=== PATIENT | male | born 1980 | race Caucasian/White ===

== ENCOUNTER 2023-06-12 17:19 | Inpatient (IN) | payer MEDICAID, SELFPAY ==
[2023-06-12] VITALS (36 sets, daily range): BP systolic 79–128; BP diastolic 14–91; PULSE 61–80; RESP 14–20; TEMP 36.1–36.9; O2SAT 88–100; BMI 32.5
--- NOTE | 2023-06-12 17:23 | ECG_ITS ---
APPROVED REPORT Exam: Resting ECG HR:75 bpm ECG Measurements Heart Rate 75 AXES IN 151 P 78 QRSd 124 QRS -62 QT 388 T 66 QTc 417 Conclusion SINUS RHYTHM LEFT ANTERIOR FASCICULAR BLOCK [QRS AXIS <= -45, QR IN I, RS IN II] MODERATE VOLTAGE CRITERIA FOR LVH, CONSIDER NORMAL VARIANT [MEETS CRITERIA IN ONE OF: R(aVL), S(V1), R(V5), R(V5/V6)+S(V1)] PROBABLE LATERAL MYOCARDIAL INFARCTION , OF INDETERMINATE AGE [35 ms Q WAVE IN I/aVL/V5/V6] ABNORMAL ECG UNCONFIRMED REPORT Electronically signed by : Victor Hugo Cervantes MD 06/13/2023 14:36:39
[2023-06-12 17:45] LABS: Basophils # 0.1 K/mm3 (0-0.2); Basophils % 0.9 % (0.1-2.0); Eosinophils # 0.1 K/mm3 (0.0-0.4); Eosinophils % 1.1 % (0.1-12.0); Hematocrit 45.1 % (42.0-52.0); Hemoglobin 15.4 g/dL (14.1-18.0); Lymphocytes # 2.8 K/mm3 (0.7-4.5); Lymphocytes % 29.2 % (10-50); Mean Corpuscular Hemoglobin 29.8 pg (27.0-31.2); Mean Corpuscular Volume 87.4 fl (80-94); Mean Platelet Volume 7.8 fl (7.4-10.4); Monocytes # 0.6 K/mm3 (0.1-1.0); Neutrophils # 6.1 K/mm3 (1.8-7.8); Neutrophils % 62.7 % (37.0-80.0); Platelet Count 301 K/mm3 (142-424); Red Blood Count 5.16 M/mm3 (4.60-6.20); Red Cell Distribution Width 14.8 % (11.5-17.5); White Blood Count 9.7 K/mm3 (4.8-10.8)
[2023-06-12 17:52] LABS: Chloride 98 mmol/L (98-107); Potassium 3.9 mmoL/L (3.5-5.1); Sodium 143 mmol/L (136-145)
[2023-06-12 17:55] LABS: Alanine Aminotransferase 24 U/L (12-78); Albumin Level 4.3 g/dl (3.5-5.0); Albumin/Globulin Ratio 1.3 (1.1-1.8); Alkaline Phosphatase 55 U/L (38-126); Anion Gap 8.9 mEq/L (5-15); Aspartate Amino Transferase 35 U/L (17-59); Bilirubin,Total 0.5 mg/dl (0.2-1.3); Blood Urea Nitrogen 19 mg/dl (9-20); Calcium 9.5 mg/dl (8.4-10.2); Carbon Dioxide 40 mmol/L (22.0-30.0); Creatinine Clearance Estimated 120 mL/min (50-200); Estimated Glomerular Filt Rate 65 ml/min (>60); GFR (African American) 79 ML/MIN (>60); Globulin 3.3 g/dL (1.3-3.2); Glucose 201 mg/dl (74-100); Total Protein,Serum 7.6 g/dl (6.3-8.2)
[2023-06-12 17:56] LABS: Magnesium 2.3 mg/dl (1.6-2.3); Phosphorous 5.3 mg/dl (2.5-4.5)
[2023-06-12] MEDS: LACTATED RINGERS 1000ML 1,000 ML 999 ML IV (17:57)
[2023-06-12 17:58] LABS: Acetaminophen < 10 ug/ml (10-30); Ethyl Alcohol < 10 mg/dl (0-10); Salicylate < 1.0 mg/dL (2.0-20.0)
[2023-06-12] MEDS: ONDANSETRON 4MG/2ML VIAL 4 MG IV (17:58)
[2023-06-12 18:00] LABS: VBG Base Excess 9.4 mmol/L (-2.4-2.3); VBG HCO3 34.9 mmol/L (23-30); VBG Oxygen Saturation 63.7 % (50-70); VBG PCO2 63.9 mmol/L (35-51); VBG PH 7.36 mmol/L (7.31-7.41); VBG PO2 32.3 mmol/L (28-40); VBG Total CO2 36.8 mmol/L (23-27)
--- NOTE | 2023-06-12 18:03 | HMH.EDGENADL ---
Discharge Plan Disposition Patient Disposition: Admitted Clinical Impressions Clinical Impression: Acute hypoxemic respiratory failure Intentional drug overdose Qualifiers: Encounter type: initial encounter Qualified Code(s): T50.902A - Poisoning by unspecified drugs, medicaments and biological substances, intentional self-harm, initial encounter Discharge ED Provider: Carina Sharp General Adult HPI General Chief complaint: Overdose Stated complaint: OD Time Seen by Provider: 06/12/23 17:22 Mode of Arrival: Wheelchair Source of Information: Patient Limitations: No Limitations Description of Symptoms (Recalled from ER Triage Doc. by RN): Patient states he has alot going on in his life and attempted to take his life by taking about 90 gabapentin 18 30mg morphine and a whole bottle of lisinopril. Patient states he has history of SI attempts. Patient was vomiting and sweating on arrival to ED. History of Present Illness HPI narrative: This patient is a 43-year-old male with a history of bipolar disorder, diabetes, hypertension, chronic pain, and prior suicide attempt presenting to the emergency department for evaluation after an intentional overdose. Patient reports that sometime between 11 AM and 2 PM today, he took 90 300mg tablets of gabapentin, 18 30mg tablets of morphine ER, 50 20mg/12.5mg lisinpril/hctz tablets in an attempt to kill himself. A woman that he is currently staying with who describes her self as an acquaintance arrived home and found him after this overdose, and she forced him to drink baking soda. After this, he began profusely vomiting. He arrives actively vomiting at this time. He received narcan from his friend just [employer]. Related Data Allergies Allergy/AdvReac Type Severity Reaction Status Date / Time No Known Allergies Allergy Verified 06/12/23 17:54 [facility] Disclaimer: The information contained in this section may have been updated after the patient was seen, as this information can be updated by other users. Social History Smoking Status: Current every day smoker alcohol intake: never current occupational status: employed Travel in the last 8 weeks: None ROS Obtained: Yes All systems reviewed & no additional complaints except as documented Physical Exam General General appearance: alert Comment: Actively vomiting, tired appearing but conversational Head Head exam: atraumatic and normocephalic Eye Eye exam: Present normal appearance, PERRL and EOMI ENT ENT exam: Present normal exam, normal oropharynx, mucous membranes moist and normal external ear exam Neck Neck exam: Present normal inspection, full ROM and trachea midline; Absent tenderness Chest Chest inspection: Present normal inspection and symmetric chest wall rise; Absent tenderness Respiratory Respiratory exam: Present normal lung sounds bilaterally; Absent respiratory distress, wheezes, stridor or accessory muscle use Cardiovascular Cardiovascular exam: Present regular rate and normal rhythm Abdominal Exam Abdominal exam: Present soft; Absent distention, tenderness or guarding Extremities Exam Extremities exam: Present normal inspection, full ROM and normal capillary refill; Absent tenderness or edema Back Exam Back exam: Present normal inspection and full ROM; Absent tenderness Neurological Exam Neurological exam: Present alert, oriented X3, CN II-XII intact and normal gait; Absent motor sensory deficit Psychiatric Psychiatric exam: Present normal affect and normal mood Skin Skin exam: Present warm and dry Medical Decision Making Medical Records Medical records reviewed: Yes I reviewed the patient's medical records. Umesh Inquiry Pt receiving controlled substance: No Vital Signs: 06/12/23 17:20 06/12/23 18:17 06/12/23 18:24 Temperature 98.5 F Temperature Source Oral Pulse Rate 61 62 Pulse Rate [Right] 80 Respiratory Rate 20 14 19 Blood Pressure 111/70 109/76 L Blood Pressure [Right Arm] 128/91 H Blood Pressure Mean [Right Arm] 103 02 Sat by Pulse Oximetry 99 100 97 Oxygen Delivery Method Room Air Nasal Cannula Room Air Oxygen Flow Rate (LPM) 2 2 06/12/23 18:30 06/12/23 19:26 Temperature Temperature Source Pulse Rate 64 Pulse Rate [Right] Respiratory Rate 19 18 Blood Pressure 109/76 L Blood Pressure [Right Arm] Blood Pressure Mean [Right Arm] 02 Sat by Pulse Oximetry 88 L 98 Oxygen Delivery Method Nasal Cannula Oxygen Flow Rate (LPM) 2 Lab Data Lab results reviewed: Yes I reviewed the patient's lab results. Lab Results 06/12/23 17:23: WBC 9.7, RBC 5.16, Hgb 15.4, Hct 45.1, MCV 87.4, MCH 29.8, MCHC 34.0, RDW 14.8, Plt Count 301, MPV 7.8, Neut % (Auto) 62.7, Lymph % (Auto) 29.2, [place] % (Auto) 6.0, Eos % (Auto) 1.1, Baso % (Auto) 0.9, Neut # (Auto) 6.1, Lymph # (Auto) 2.8, [place] # (Auto) 0.6, Eos # (Auto) 0.1, Baso # (Auto) 0.1, Sodium 143, Potassium 3.9, Chloride 98, Carbon Dioxide 40 H, Anion Gap 8.9, BUN 19, Creatinine 1.20, Estimated Creat Clear 120, Estimated GFR 65, Est GFR ( Amer) 79, Glucose 201 H, Calcium 9.5, Phosphorus 5.3 H, Magnesium 2.3, Total Bilirubin 0.5, AST 35, ALT 24, Alkaline Phosphatase 55, Total Protein 7.6, Albumin 4.3, Globulin 3.3 H, Albumin/Globulin Ratio 1.3, Salicylates < 1.0 L, Acetaminophen < 10 L, Plasma/Serum Alcohol < 10 06/12/23 17:24: VBG pH 7.36, VBG pCO2 63.9 H, VBG pO2 32.3, VBG HCO3 34.9 H, VBG Total CO2 36.8 H, VBG O2 Saturation 63.7, VBG Base Excess 9.4 H 06/12/23 19:03: Urine Color Yellow, Urine Appearance Clear, Urine pH 7.5, Ur Specific [place] 1.015, Urine Protein Negative, Urine Glucose (UA) Negative, Urine Ketones Negative, Urine Blood Negative, Urine Nitrate Negative, Urine Bilirubin Negative, Urine Urobilinogen 0.2, Ur Leukocyte Esterase Negative, Urine RBC None, Urine WBC None, Ur Squamous Epith Cells None, Urine Bacteria None, Urine Opiates Screen Positive H, Urine Methadone Screen Negative, Ur Barbituates Screen Negative, Ur Phencyclidine Scrn Negative, Ur Amphetamines Screen Positive H, U Benzodiazepines Scrn Positive H, Urine Cocaine Screen Negative, U Marijuana (THC) Screen Positive H 06/12/23 17:23 06/12/23 17:23 Orders (Tests/Meds): ED MEDICATIONS Generic Name Dose Route Start Last Admin Trade Name Freq PRN Reason Stop Dose Admin Enoxaparin Sodium 40 mg 06/12/23 19:45 Enoxaparin 40mg/0.4ml Syringe SQ 07/12/23 19:44 DAILY SACHIN Propofol 100 mls @ 6.532 mls/hr 06/12/23 19:10 06/12/23 19:26 Diprivan 10mg/Ml 100ml Bottle IV 07/12/23 19:09 10 mcg/kg/min .[id number] SACHIN 6.53 mls/hr Administration Protocol 10 MCG/KG/MIN Fentanyl Citrate 1,000 mcg/ 100 mls @ 1 mls/hr 06/12/23 19:10 06/12/23 19:23 Sodium Chloride IV 07/12/23 19:09 10 mcg/hr .Q24H SACHIN 1 mls/hr Administration Protocol 10 MCG/HR Morphine Sulfate 2 mg 06/12/23 19:34 Morphine 2mg/Ml Syringe IV 07/12/23 19:33 Q2HP PRN Severe Pain (7-10) Pantoprazole Sodium 40 mg 06/12/23 21:00 Pantoprazole 40mg Vial IV 07/12/23 20:59 HS SACHIN Sodium Chloride 3 ml 06/12/23 19:22 Sodium Chloride 3% 15ml Neb IH 07/12/23 19:21 ONCE PRN INDUCE SPUTUM COLLECTION Discontinued Medications Generic Name Dose Route Start Last Admin Trade Name Freq PRN Reason Stop Dose Admin Etomidate 40 mg 06/12/23 18:51 06/12/23 18:51 Etomidate 40mg/20ml Vial IV 06/12/23 18:52 40 mg ONCE ONE Administration Lactated Ringer's 1,000 mls @ 999 mls/hr 06/12/23 17:26 06/12/23 17:57 Lactated Ringer's 1000 Ml Bag IV 06/12/23 18:26 999 mls/hr .Q1H1M ONE Administration Naloxone HCl 4 mg/ Dextrose 254 mls @ 25.4 mls/hr 06/12/23 18:45 06/12/23 19:30 IV 07/12/23 18:44 Not Given .Q10H SACHIN Protocol 0.4 MG/HR Naloxone HCl 4 mg 06/12/23 18:27 06/12/23 18:30 Naloxone 2mg/2ml Syringe IV 06/12/23 18:28 4 mg ONCE ONE Administration Naloxone HCl 8 mg 06/12/23 18:36 06/12/23 18:44 Naloxone 2mg/2ml Syringe IV 06/12/23 18:37 8 mg ONCE ONE Administration Ondansetron HCl 4 mg 06/12/23 17:28 06/12/23 17:58 Ondansetron 4mg/2ml Vial IV 06/12/23 17:29 4 mg ONCE ONE Administration Succinylcholine Chloride 100 mg 06/12/23 18:51 06/12/23 18:51 Succinylcholine 20mg/Ml 10 Ml Mdv IV 06/12/23 18:52 100 mg ONCE ONE Administration ORDERS Category Date Time Status Pulmonology Consult [Consult to Pulmonology] [CONS] Cons 06/12/23 19:36 Active Stat XR chest portable Stat Exams 06/12/23 18:56 Completed Acetaminophen Stat Lab 06/12/23 17:23 Completed Complete Blood Count Auto Diff AMLAB Lab 06/13/23 06:00 Ordered Complete Blood Count Auto Diff Stat Lab 06/12/23 17:23 Completed Comprehensive Metabolic Panel AMLAB Lab 06/13/23 06:00 Ordered Comprehensive Metabolic Panel Stat Lab 06/12/23 17:23 Completed Drug Screen,Urine Stat Lab 06/12/23 19:03 Completed Ethyl Alcohol Stat Lab 06/12/23 17:23 Completed Magnesium AMLAB Lab 06/13/23 06:00 Ordered Magnesium Stat Lab 06/12/23 17:23 Completed Phosphorous Stat Lab 06/12/23 17:23 Completed Salicylate Stat Lab 06/12/23 17:23 Completed Urinalysis and Microscopic Stat Lab 06/12/23 19:03 Completed Sputum Culture & Gram Stain Stat Micro 06/12/23 19:00 Ordered ABG [Arterial Blood Gas] Stat RT 06/12/23 20:00 Completed Venous Blood Gas Stat RT 06/12/23 17:24 Completed ECG Data Tracing #1: I reviewed this ECG and interpreted as documented below: Normal sinus rhythm with a ventricular rate of 75 bpm. Left anterior fascicular block noted. No prior EKG available for comparison. No acute ST changes concerning for ischemia. No prolonged QT. ECG initial impression date: 06/12/23 ECG initial impression time: 17:28 Medical Decision Narrative: In summary, this patient is a 43-year-old male presenting to the Emergency Department for evaluation after intentional overdose on gabapentin, lisinopril/HCTZ, and morphine. Differential diagnoses considered include but are not limited to suicide attempt, intentional overdose, tylenol overdose, other substance abuse, shock. Ruling out the most morbid conditions drove assessment. On exam, the patient is vomiting but is alert and conversational. Vitals are normal on cardiac telemetry. Workup included CBC, CMP, magnesium, phosphorus, VBG, acetaminophen level, salicylate level, ethanol, urinalysis, urine drug screen, and EKG. Full resuscitation was initiated with a bolus of IV fluids and he was given IV Zofran once EKG was obtained and did not demonstrate prolonged QT. I called and had an interactive discussion with poison control on arrival who recommended 6-hour observation. They noted concerns for potential hemodynamic instability given his ingestion of lisinopril as well as somnolence given the morphine. They recommended Narcan as needed. They stated otherwise it should be supportive management and fluid resuscitation. They also recommended checking electrolytes given the baking soda ingestion. The baking soda ingestion is their largest concern. Patient remains on cardiac telemetry at this time. Involuntary hold process initiated. Labs demonstrated negative acetaminophen, negative salicylate, negative ethanol level, but urine drug screen is positive for benzodiazepines, THC, opiates, and amphetamines. Workup was otherwise relatively unremarkable. Patient became more and more somnolent while in the emergency department. He was given 4 mg of IV Narcan with minimal improvement initially, however he then became more somnolent and having frequent desaturations. He was given 8 mg of Narcan with no improvement. He continued to have repeated desaturations into the 70s. Given this, decision was made to intubate him for airway protection until he did have less distress and is cleared for psychiatric evaluation. He was intubated with etomidate and succinylcholine with no complications. An 8-0 ETT was placed at 24 at the lip. Placement was confirmed with breath sounds, color change, and chest x-ray. It was 6.5 cm above the carmen, so was advanced 2 cm. He maintained on minimal vent settings. He is hemodynamically stable. Given this, I called and had an interactive discussion with Dr. Saxena and Lee the hospitalists who advised that they would admit the patient for further evaluation and management. He was admitted in stable condition. Procedures Intubation Mallampati Score:: Class II Time out performed: Yes sedative: Etomidate Mg Given: 40 paralytic: Succinylcholine Mg Given: 50 Laryngoscope: Homa ET Tube Size: 8 ET Tube Uncuffed: No Tube Secured Depth (cm): 24 Tube Secured Location: lips Tube Placement Confirmation: visualized tube passing through cords, equal breath sounds bilaterally, no breath sounds over epigastrium and confirmation by capnometry Patient Tolerated Procedure: well and no complications Intubation Complications: none Critical Care Critical Care Time Critical Care Time: Yes Attestation: On 06/12/23, the high probability of a clinically significant, sudden or life threatening deterioration of the following system(s) (neurologic, cardiovascular, respiratory) required my full and direct attention, intervention and personal management. The time I documented below is in addition to time spent performing reported procedures but includes the following listed in this critical care notation. Total Time Total Critical Care Time: 60
--- NOTE | 2023-06-12 18:25 | PC.NURSE ---
pt placed on 2 liters of oxygen by Martín per request due to pt sat dropping in the 70's when sleeping
[2023-06-12] MEDS: NALOXONE 2MG/2ML SYRINGE 4 MG IV (18:30)
--- NOTE | 2023-06-12 18:42 | PC.NURSE ---
ADJUSTED PT OXYGEN TO 4 LITERS
[2023-06-12] MEDS: NALOXONE 2MG/2ML SYRINGE 8 MG IV (18:44)
--- NOTE | 2023-06-12 18:50 | PC.NURSE ---
Spoke with judge krueger and advised that he had been emailed forms
[2023-06-12] MEDS: ETOMIDATE 40MG/20ML VIAL 40 MG IV (18:51)
[2023-06-12] MEDS: SUCCINYLCHOLINE 20MG/ML 10 ML MDV 100 MG IV (18:51)
--- NOTE | 2023-06-12 18:56 | XR_ITS ---
PROCEDURE INFORMATION: Exam: XR Chest Exam date and time: 06/12/2023 7:13 PM Age: 43 years old Clinical indication: Device placement; Ett placement (vent status); Additional info: Post-intubation/og TECHNIQUE: Imaging protocol: Radiologic exam of the chest. Views: 1 view. COMPARISON: No relevant prior studies available. FINDINGS: Tubes, catheters and devices: Endotracheal tube in good position terminating approximately 6.5 cm from the carmen. Enteric tube in place. It is difficult to follow the course of the tube secondary to technique. It may terminate in the proximal stomach. Lungs: Low lung volumes. The lungs appear clear. Pleural spaces: Normal No pleural effusion. No pneumothorax. Heart/Mediastinum: Normal. No cardiomegaly. Vasculature: Tortuous atherosclerotic thoracic aorta. Bones/joints: Unremarkable. IMPRESSION: 1. Endotracheal tube in good position terminating approximately 6.5 cm from the carmen. 2. Enteric tube in place. It is difficult to follow the course of the tube secondary to technique. It may terminate in the proximal stomach. Consider obtaining an abdominal radiograph.
[2023-06-12 19:07] LABS: Microscopic, Urine URINE MICROSCOPIC (MICROSCOPIC)
--- NOTE | 2023-06-12 19:14 | PC.NURSE ---
Patient desatting when falling asleep placed on nasal cannula and still unable to maintain adequate o2 sats 1848 preoxygenated with 100% non re-breather 185 etomidate 40mg given 185 succinylcholine 100mg given 185 intubated with 8.0 ETT 24 at lip color change noted 1900 NG tube placed 190 Johnson placed Propofol and fentanyl started for sedation. See Mar for titration and times.
[2023-06-12 19:22] LABS: Appearance,Urine CLEAR (Clear); Bilirubin,Urine Negative (Negative); Blood, Urine Negative (Negative); Color,Urine YELLOW (Yellow); Glucose,Urine (UA) Negative (Negative); Ketones,Urine Negative (Negative); Leukocyte Esterase,Urine Negative (Negative); Nitrate,Urine Negative (Negative); PH,Urine 7.5 (5.0-8.5); Protein,Urine Negative (Negative); Specific Gravity, Urine 1.015 (1.005-1.030); Urobilinogen,Urine 0.2 EU/dl (0.2)
[2023-06-12] MEDS: FENTANYL CITRATE/PF 1,000 MCG in 0.9 % SODIUM CHLORIDE 80 ML 1 MCG IV (19:23)
[2023-06-12] MEDS: propofoL 100 ML 6.53000000000000025 MG IV (19:26)
--- NOTE | 2023-06-12 19:36 | P.HP_ITS ---
History of Present Illness *Admission Date: 06/12/23 *Reason for visit:: SA *History of present illness: This is a 43-year-old male with PMHx of bipolar disorder, diabetes, hypertension, chronic pain, and prior suicide attempt presenting to the emergency department for evaluation after an intentional overdose. History is limitted due to patient conditions. Per ED documentation patient reports that sometime between 11 AM and 2 PM today, he took 90 300mg tablets of gabapentin, 18 30mg tablets of morphine ER, 50 20mg/12.5mg lisinpril/hctz tablets in an attempt to kill himself. A woman that he is currently staying with who describes her self as an acquaintance arrived home and found him after this overdose, and she forced him to drink baking soda. After this, he began profusely vomiting. He arrives actively vomiting at this time. He received narcan from his friend olinda SEGURA. Admitted for stabilization treatment and management. [facility] Disclaimer: The information contained in this section may have been updated after the patient was seen, as this information can be updated by other users. Medical History (Updated 06/13/23 @ 12:37 by Pam Cunha MD) Altered mental state Drug overdose On mechanically assisted ventilation Social History (Updated 06/12/23 @ 20:26 by Carina Sharp DO) Smoking Status: Current every day smoker alcohol intake: never current occupational status: employed Travel in the last 8 weeks: None Review of Systems Review of Systems Review of systems:: unable to obtain Meds Home Medications and Allergies Home Medications Medication Instructions Recorded Confirmed Type gabapentin 300 mg capsule 300 mg PO TID Pain 06/13/23 06/13/23 History levocetirizine 5 mg tablet 5 mg PO HS Allergy Symptoms 06/13/23 06/13/23 History lisinopril 20 1 tab PO BID High Blood Pressure 06/13/23 06/13/23 History mg-hydrochlorothiazide 12.5 mg tablet New Prescriptions to Start Prescriptions: Allergies Allergy/AdvReac Type Severity Reaction Status Date / Time No Known Allergies Allergy Verified 06/12/23 17:54 Exam Data for Last 24 hours Vital signs and Labs for Last 24 Hours: Temp Pulse Resp BP Pulse Ox O2 Del Method O2 Flow Rate 98.5 F 64 18 109/76 L 98 Nasal Cannula 2 06/12/23 17:20 06/12/23 18:30 06/12/23 19:26 06/12/23 18:30 06/12/23 19:26 06/12/23 18:30 06/12/23 18:30 FiO2 25 06/12/23 19:26 Laboratory Results - last 24 hr 06/12/23 17:23: WBC 9.7, RBC 5.16, Hgb 15.4, Hct 45.1, MCV 87.4, MCH 29.8, MCHC 34.0, RDW 14.8, Plt Count 301, MPV 7.8, Neut % (Auto) 62.7, Lymph % (Auto) 29.2, [place] % (Auto) 6.0, Eos % (Auto) 1.1, Baso % (Auto) 0.9, Neut # (Auto) 6.1, Lymph # (Auto) 2.8, [place] # (Auto) 0.6, Eos # (Auto) 0.1, Baso # (Auto) 0.1, Sodium 143, Potassium 3.9, Chloride 98, Carbon Dioxide 40 H, Anion Gap 8.9, BUN 19, Creatinine 1.20, Estimated Creat Clear 120, Estimated GFR 65, Est GFR ( Amer) 79, Glucose 201 H, Calcium 9.5, Phosphorus 5.3 H, Magnesium 2.3, Total Bilirubin 0.5, AST 35, ALT 24, Alkaline Phosphatase 55, Total Protein 7.6, Albumin 4.3, Globulin 3.3 H, Albumin/Globulin Ratio 1.3, Salicylates < 1.0 L, Acetaminophen < 10 L, Plasma/Serum Alcohol < 10 06/12/23 17:24: VBG pH 7.36, VBG pCO2 63.9 H, VBG pO2 32.3, VBG HCO3 34.9 H, VBG Total CO2 36.8 H, VBG O2 Saturation 63.7, VBG Base Excess 9.4 H I & O for Last 24 hours: Intake & Output 06/09/23 06/10/23 06/11/23 06/12/23 23:59 23:59 23:59 23:59 Weight 108.862 kg Constitutional Constitutional: somnolent *Routine HEENT Exam Head: Present normocephalic and atraumatic Eye: Present EOMI, PERRL and normal accommodation ENT: Present mucous membranes moist *Routine Neck Exam Neck: Present supple, full ROM and trachea midline *Routine Respiratory Exam Respiratory: Present patient mechanically ventilated *Routine Cardiovascular Exam Cardiovascular: Present RRR, Normal S1, Normal S2 and bradycardia *Routine Abdominal Exam Abdominal: Present soft and normoactive bowel sounds; Absent organomegaly *Routine Rectal Exam Rectal:: deferred *Routine Genitalia Exam Genitalia:: deferred *Routine Extremities Exam Extremities: Present full ROM and pulses intact; Absent cyanosis, clubbing or edema *Routine Skin Exam Skin: Present intact, dry and warm *Routine Neurological Exam Neurological: Present altered mental status Routine Psychiatric Exam Psychiatric: Present unable to assess H&P: Result Imaging and Cardiology EKG: Status: image reviewed by me and Preliminary report Chest x-ray: Status: image reviewed by me, Preliminary report and final report Assessment and Plan *Assessment and plan (1) Acute hypoxemic respiratory failure: Status: Acute Category: Medical Code(s): J96.01 - Acute respiratory failure with hypoxia (2) Suicidal intent: Status: Acute Category: Medical Code(s): R45.851 - Suicidal ideations (3) Intentional drug overdose: Status: Acute Qualifiers: Encounter type: initial encounter Qualified Code(s): T50.902A - Poisoning by unspecified drugs, medicaments and biological substances, intentional self-harm, initial encounter Category: Medical Code(s): T50.902A - Poisoning by unspecified drugs, medicaments and biological substances, intentional self-harm, initial encounter (4) Bipolar disorder: Status: Acute Qualifiers: Active/Remission status: currently active Current bipolar episode type: depressed Current episode severity: severe Psychotic features: unspecified Qualified Code(s): F31.4 - Bipolar disorder, current episode depressed, severe, without psychotic features Category: Medical Code(s): F31.9 - Bipolar disorder, unspecified (5) Hx of diabetes mellitus: Status: Acute Category: Medical Code(s): Z86.39 - Personal history of other endocrine, nutritional and metabolic disease (6) HTN (hypertension): Status: Acute Qualifiers: Hypertension type: unspecified Qualified Code(s): I10 - Essential (primary) hypertension Category: Medical Code(s): I10 - Essential (primary) hypertension Plan 43-year-old male with PMHx of bipolar disorder, diabetes, hypertension, chronic pain, and prior suicide attempt presenting to the emergency department after intentional overdose as a SA. patient initially reported the intention of take his life. he used Gbapentin, Morphine and Lisinopril-HCTZ Arrived via EMS after a relative found him and make him to swallow baking soda to provoke his vomit. On arrival patient was vomiting, on AMS, lethargic. Entubated to secure air way, after many unsuccessfully attempts of narcan IV. labs are grossly unremarkable. Urine toxicity also obtained, revealed positive also for marijuana and amphetamine. Poison control center was called. Recommendations in place. Discussed with ED provider for admission. Plan as follow: -Acute hypoxemic respiratory failure status post mechanical ventilated, secondary to a suicide attempt by intentional drug overdose: Admit patient for medical services. Dispo ICU Currently vent. Minimal setting. N.p.o. aspiration precaution Supportive care. Mouth care. Respiratory toileting Pulmonology consult Respiratory therapy to assist Continue sedation on propofol and fentanyl weaning off Continue on normal saline IV infusion Repeat a monitor labs in the morning Watch and monitor for electrolyte imbalance Johnson in for accurate in and out. Monitor for renal output -Suicide attempt in the setting of prior history, bipolar, and major depression: Psych consult Patient might need inpatient behavioral after medical stabilization -History of diabetes: Accu-Cheks every 6h Monitor for hypo or hyperglycemia Sliding scale... History of hypertension: Hold hypertensive medication. Lovenox for DVT prophylaxis. Protonix for GI protection IV daily Full code Rounded on patient after nurse practitioner. Personally examined and interviewed patient. Agree with exam findings and care plan as documented.
[2023-06-12 19:40] LABS: Barbiturates Screen,Urine Negative ng/ml (<200); Benzodiazepines Screen,Urine Positive ng/ml (<200)
[2023-06-12 19:41] LABS: Methadone Screen,Urine Negative ng/ml (<300)
[2023-06-12 19:42] LABS: Cannabinoid Screen,Urine Positive ng/ml (<50); Cocaine Screen,Urine Negative ng/ml (<300)
[2023-06-12 19:43] LABS: Opiate Screen,Urine Positive ng/ml (<300); Phencyclidine Screen,Urine Negative ng/ml (<25)
--- NOTE | 2023-06-12 19:43 | PC.NURSE ---
Patient admitted to [facility] ICU with dx of resp failure and intentional overdose to service of Dr. Saxena.
[2023-06-12 19:53] LABS: ABG Base Excess 2.6 mmol/L (-2.4-2.3); ABG HCO3 27.6 mmhg (22.0-26.0); ABG Oxygen Saturation 96 % (90-100); ABG PH 7.39 mmol/L (7.35-7.45); ABG PO2 82.3 mmhg (80-100); ABG TCO2 29.1 mmhg (23-27); Oxygen 25 %; Tidal Volume 420; Vent Rate 18
[2023-06-12 19:54] LABS: Allen's Test Patient Unable; PEEP 5; Source Right Radial
[2023-06-12 20:05] LABS: Amphetamine/Metha Screen,Urine Positive ng/ml (<1000)
--- NOTE | 2023-06-12 21:32 | ECG_ITS ---
APPROVED REPORT Exam: Resting ECG HR:61 bpm ECG Measurements Heart Rate 61 AXES UT 156 P 64 QRSd 124 QRS -64 QT 434 T -65 QTc 436 Conclusion SINUS RHYTHM WITH OCCASIONAL SUPRAVENTRICULAR PREMATURE COMPLEXES LEFT ANTERIOR FASCICULAR BLOCK MODERATE T-WAVE ABNORMALITY, CONSIDER ANTERIOR ISCHEMIA [-0.1+ mV T-WAVE IN V3/V4] ABNORMAL ECG UNCONFIRMED REPORT Electronically signed by : Victor Hugo Cervantes MD 06/13/2023 14:36:28
--- NOTE | 2023-06-12 23:08 | PC.NURSE ---
pt arrived to floor via stretcher @21:45
[2023-06-12 23:15] LABS: Troponin I < 0.01 ng/ml (0.00-0.034)
[2023-06-12] MEDS: ENOXAPARIN 40MG/0.4ML SYRINGE 40 MG SQ (23:48)
[2023-06-12] MEDS: propofoL 100 ML 16.3299999999999983 MG IV (23:48)
[2023-06-12] MEDS: PANTOPRAZOLE 40MG VIAL 40 MG IV (23:49)
[2023-06-12] MEDS: 0.9 % SODIUM CHLORIDE 1000ML 1,000 ML 125 ML IV (23:49)
[2023-06-13] VITALS (32 sets, daily range): BP systolic 90–164; BP diastolic 11–100; PULSE 51–91; RESP 18–27; TEMP 36.3–37.8; O2SAT 92–100; BMI 21.2
[2023-06-13] MEDS: 0.9 % SODIUM CHLORIDE 1000ML 500 ML 999 ML IV
--- NOTE | 2023-06-13 00:04 | PC.NURSE ---
Addendum entered by Gisselle Armijo RN 06/13/23 00:19: 2MM PERRLA Original Note: 2144 ASSESSMENT: NEURO: SEDATED, W/D TO PAIN, AROUSES TO VOICE, 3MM PERRLA CARDAIC: SB/SA, NO EDEMA PRESENT, PULSES +2 RADIAL AND PEDAL RESP: CLEAR THROUGHOUT, ETT 8.0 @ 26 @ LIPS, SCANT SECRETIONS W/ ETT SUCTIONING, VENT SETTINGS 420/25/18/5; PT RESPONSE GI: R NGT @ 61 TO LWIS, AUSCULTATED FOR PLACEMENT W/ SMALL BROWN DRAINAGE, ACTIVE BS : BALTAZAR CATHETER IN PLACEMENT W/ STRAW YELLOW URINE DRAINING SKIN: SCATTERED BRUISING NOTED IV: # 20 R WRIST FLUSHED AND SALINE LOCKED, #20 LAC FLUSHED AND INFUSING PROPOFOL AND FENTANYL GTTS: PROPOFOL @ 25 MCG/KG/MIN, FENTANYL @ 100 MCG/HR
[2023-06-13] MEDS: propofoL 100 ML 16 MG IV ×2 (05:53→09:39)
--- NOTE | 2023-06-13 07:02 | ECG_ITS ---
APPROVED REPORT Exam: Resting ECG HR:57 bpm ECG Measurements Heart Rate 57 AXES NC 157 P 51 QRSd 125 QRS -62 QT 478 T 8 QTc 472 Conclusion SINUS BRADYCARDIA WITH FREQUENT SUPRAVENTRICULAR PREMATURE COMPLEXES LEFT ANTERIOR FASCICULAR BLOCK [QRS AXIS <= -45, QR IN I, RS IN II] PROBABLE LATERAL MYOCARDIAL INFARCTION , OF INDETERMINATE AGE [35 ms Q WAVE IN I/aVL/V5/V6] MODERATE T-WAVE ABNORMALITY, CONSIDER ANTERIOR ISCHEMIA [-0.1+ mV T-WAVE IN V3/V4] ABNORMAL ECG UNCONFIRMED REPORT Electronically signed by : Victor Hugo Cervantes MD 06/13/2023 14:35:38
[2023-06-13 07:22] LABS: Eosinophils # 0.1 K/mm3 (0.0-0.4); Lymphocytes # 2.5 K/mm3 (0.7-4.5); Monocytes # 0.4 K/mm3 (0.1-1.0); Neutrophils # 2.7 K/mm3 (1.8-7.8); Neutrophils % 46.8 % (37.0-80.0); Platelet Count 234 K/mm3 (142-424); Red Cell Distribution Width 14.8 % (11.5-17.5); White Blood Count 5.7 K/mm3 (4.8-10.8)
[2023-06-13 07:32] LABS: Alanine Aminotransferase 17 U/L (12-78); Albumin Level 3.2 g/dl (3.5-5.0); Albumin/Globulin Ratio 1.3 (1.1-1.8); Alkaline Phosphatase 55 U/L (38-126); Anion Gap 7.9 mEq/L (5-15); Aspartate Amino Transferase 24 U/L (17-59); Bilirubin,Total 0.4 mg/dl (0.2-1.3); Blood Urea Nitrogen 16 mg/dl (9-20); Calcium 8.7 mg/dl (8.4-10.2); Carbon Dioxide 32 mmol/L (22.0-30.0); Chloride 104 mmol/L (98-107); Creatinine Clearance Estimated 104 mL/min (50-200); Estimated Glomerular Filt Rate 91 ml/min (>60); GFR (African American) 110 ML/MIN (>60); Globulin 2.5 g/dL (1.3-3.2); Glucose 93 mg/dl (74-100); Sodium 141 mmol/L (136-145); Total Protein,Serum 5.7 g/dl (6.3-8.2)
[2023-06-13 07:33] LABS: Basophils % 0.6 % (0.1-2.0); Eosinophils % 1.5 % (0.1-12.0); Hematocrit 40.1 % (42.0-52.0); Lymphocytes % 43.8 % (10-50); Mean Corpuscular HGB Conc 33.6 g/dL (31.8-35.4); Mean Corpuscular Hemoglobin 29.5 pg (27.0-31.2); Mean Corpuscular Volume 87.8 fl (80-94); Mean Platelet Volume 8.3 fl (7.4-10.4); Monocytes % 7.4 % (1.7-9.3); Red Blood Count 4.57 M/mm3 (4.60-6.20)
[2023-06-13 07:35] LABS: Hemoglobin 13.5 g/dL (14.1-18.0)
[2023-06-13 07:43] LABS: Potassium 2.9 mmoL/L (3.5-5.1)
[2023-06-13 07:46] LABS: Troponin I < 0.01 ng/ml (0.00-0.034)
--- NOTE | 2023-06-13 08:12 | PC.NURSE ---
fentanyl at 50 when assumed care of pt at 0700, titrated to 40 at 0800
[2023-06-13] MEDS: ENOXAPARIN 40MG/0.4ML SYRINGE 40 MG SQ (08:52)
[2023-06-13] MEDS: KCl 10mEq/100ml 100 ML 100 MEQ IV ×3 (08:52→10:58)
[2023-06-13] MEDS: POTASSIUM CHLORIDE 20MEQ/15ML UDC 40 MEQ NG-TUBE ×2 (08:52→22:03)
[2023-06-13] MEDS: 0.9 % SODIUM CHLORIDE 1000ML 1,000 ML 125 ML IV ×3 (08:52→22:04)
--- NOTE | 2023-06-13 09:05 | PC.NURSE ---
fentanyl weaned to 20 at this time
--- NOTE | 2023-06-13 09:20 | HMH.PHAINT1 ---
Pharmacy Intervention Comments: MEDICATION RECONCILIATION COMPLETED ON PATIENT USING EXTERNAL FILL HISTORY FROM PHARMACY. -CARLOS CASTANEDA, ANANYAD
--- NOTE | 2023-06-13 09:32 | PC.NURSE ---
fentanyl weaned to 10 at this time
[2023-06-13] MEDS: FENTANYL CITRATE/PF 1,000 MCG in 0.9 % SODIUM CHLORIDE 80 ML 1 MCG IV (09:40)
--- NOTE | 2023-06-13 09:50 | P.CONS_ITS ---
History of Present Illness History of present illness: Mr. Oreilly is a 43-year-old male with reported history of bipolar disorder diabetes hypertension chronic and prior suicide attempts presented to the ER with concern for intentional overdose intubated for airway protection pulmonary was called for further evaluation and management. [facility] Disclaimer: The information contained in this section may have been updated after the mauricioe nt was seen, as this information can be updated by other users. Medical History (Updated 06/13/23 @ 12:37 by Pam Cunha MD) Altered mental state Drug overdose On mechanically assisted ventilation Social History (Updated 06/12/23 @ 20:26 by Carina Sharp DO) Smoking Status: Current every day smoker alcohol intake: never current occupational status: employed Travel in the last 8 weeks: None Review of Systems Review of Systems Review of systems:: unable to obtain Review of systems (narrative): Intubated and sedated Pulmonology Exam Inpatient Vital signs and Labs for Last 24 Hours: Temp Pulse Resp BP Pulse Ox O2 Del Method O2 Flow Rate 97.7 F 54 L 18 110/67 98 Mechanical Ventilation 2 06/13/23 07:38 06/13/23 06:00 06/13/23 06:00 06/13/23 06:00 06/13/23 06:48 06/13/23 06:00 06/12/23 18:30 FiO2 21 06/13/23 06:48 Laboratory Results - last 24 hr 06/12/23 17:23: WBC 9.7, RBC 5.16, Hgb 15.4, Hct 45.1, MCV 87.4, MCH 29.8, MCHC 34.0, RDW 14.8, Plt Count 301, MPV 7.8, Neut % (Auto) 62.7, Lymph % (Auto) 29.2, [place] % (Auto) 6.0, Eos % (Auto) 1.1, Baso % (Auto) 0.9, Neut # (Auto) 6.1, Lymph # (Auto) 2.8, [place] # (Auto) 0.6, Eos # (Auto) 0.1, Baso # (Auto) 0.1, Sodium 143, Potassium 3.9, Chloride 98, Carbon Dioxide 40 H, Anion Gap 8.9, BUN 19, Creatinine 1.20, Estimated Creat Clear 120, Estimated GFR 65, Est GFR ( Amer) 79, Glucose 201 H, Calcium 9.5, Phosphorus 5.3 H, Magnesium 2.3, Total Bilirubin 0.5, AST 35, ALT 24, Alkaline Phosphatase 55, Troponin I < 0.01, Total Protein 7.6, Albumin 4.3, Globulin 3.3 H, Albumin/Globulin Ratio 1.3, Salicylat es < 1.0 L, Acetaminophen < 10 L, Plasma/Serum Alcohol < 10 06/12/23 17:24: VBG pH 7.36, VBG pCO2 63.9 H, VBG pO2 32.3, VBG HCO3 34.9 H, VBG Total CO2 36.8 H, VBG O2 Saturation 63.7, VBG Base Excess 9.4 H 06/12/23 19:03: Urine Color Yellow, Urine Appearance Clear, Urine pH 7.5, Ur Specific [place] 1.015, Urine Protein Negative, Urine Glucose (UA) Negative, Urine Ketones Negative, Urine Blood Negative, Urine Nitrate Negative, Urine Bilirubin Negative, Urine Urobilinogen 0.2, Ur Leukocyte Esterase Negative, Urine RBC None, Urine WBC None, Ur Squamous Epith Cells None, Urine Bacteria None, Urine Opiates Screen Positive H, Urine Methadone Screen Negative, Ur Barbituates Screen Negative, Ur Phencyclidine Scrn Negative, Ur Amphetamines Screen Positive H, U Benzodiazepines Scrn Positive H, Urine Cocaine Screen Negative, U Marijuana (THC) Screen Positive H 06/12/23 20:00: Specimen Source Right radial, O2 % 25, ABG pH 7.39, ABG pCO2 47.0 H, ABG pO2 82.3, ABG HCO3 27.6 H, ABG Total CO2 29.1 H, ABG O2 Saturation 96, ABG Base Excess 2.6 H, Shay Test Patient unable, Vent Rate 18, Tidal Volume 420, PEEP 5 06/13/23 06:39: WBC 5.7 D, RBC 4.57 L, Hgb 13.5 L D, Hct 40.1 L, MCV 87.8, MCH 29.5, MCHC 33.6, RDW 14.8, Plt Count 234, MPV 8.3, Neut % (Auto) 46.8, Lymph % (Auto) 43.8, [place] % (Auto) 7.4, Eos % (Auto) 1.5, Baso % (Auto) 0.6, Neut # (Auto) 2.7, Lymph # (Auto) 2.5, [place] # (Auto) 0.4, Eos # (Auto) 0.1, Baso # (Auto) 0.0, Sodium 141, Potassium 2.9 L* D, Chloride 104, Carbon Dioxide 32 H, Anion Gap 7.9, BUN 16, Creatinine 0.90 D, Estimated Creat Clear 104, Estimated GFR 91, Est GFR ( Amer) 110 D, Glucose 93 D, Calcium 8.7, Magnesium 2.0 D, Total Bilirubin 0.4, AST 24 D, ALT 17 D, Alkaline Phosphatase 55, Troponin I < 0.01, Total Protein 5.7 L, Albumin 3.2 L D, Globulin 2.5, Albumin/Globulin Ratio 1.3 I & O for Labs for Last 24 Hours: Intake & Output 06/10/23 06/11/23 06/12/23 06/13/23 23:59 23:59 23:59 23:59 Intake Total 33.164 / 33.164 2424.241 / 2424.241 Output Total 1595 / 1615 650 / 650 Balance -1561.836 / -4854.331 0954.241 / 1774.241 Weight 240 lb 156 lb 14.4 oz Constitutional: Present severe distress Comment:: Intubated and Sedated Head: Present normocephalic and atraumatic Neck: Present normal inspection and trachea midline Respiratory: Present patient mechanically ventilated; Absent prolonged expiratory phase, rhonchi, wheezes or crackles Cardiac: Present S1/S2 and Bradycardia GI: Present soft; Absent distention or tenderness Skin: Present intact; Absent cyanosis Neuro: Absent alert, awake or oriented x 3 Comment:: Intubated and sedated Extremities: Present normal inspection; Absent clubbing or cyanosis Psychiatric: Present unable to assess Meds Home Medications and Allergies Home Medications Medication Instructions Recorded Confirmed Type gabapentin 300 mg capsule 300 mg PO TID Pain 06/13/23 06/13/23 History levocetirizine 5 mg tablet 5 mg PO HS Allergy Symptoms 06/13/23 06/13/23 History lisinopril 20 1 tab PO BID High Blood Pressure 06/13/23 06/13/23 History mg-hydrochlorothiazide 12.5 mg tablet New Prescriptions to Start Prescriptions: Allergies Allergy/AdvReac Type Severity Reaction Status Date / Time No Known Allergies Allergy Verified 06/12/23 17:54 Results Laboratory Findings 06/13/23 06:39 06/13/23 06:39 ABG ABG pH 7.39 mmol/L (7.35-7.45) 06/12/23 20:00 ABG pCO2 47.0 mmhg (35.0-45.0) H 06/12/23 20:00 ABG pO2 82.3 mmhg (80-100) 06/12/23 20:00 ABG O2 Saturation 96 % (90-100) 06/12/23 20:00 Abnormal lab findings: Abnormal Labs 06/12/23 06/12/23 06/12/23 17:23 17:24 19:03 RBC Hgb Hct ABG pCO2 ABG HCO3 ABG Total CO2 ABG Base Excess VBG pCO2 63.9 H VBG HCO3 34.9 H VBG Total CO2 36.8 H VBG Base Excess 9.4 H Potassium Carbon Dioxide 40 H Glucose 201 H Phosphorus 5.3 H Total Protein Albumin Globulin 3.3 H Salicylates < 1.0 L Urine Opiates Screen Positive H Acetaminophen < 10 L Ur Amphetamines Screen Positive H U Benzodiazepines Scrn Positive H U Marijuana (THC) Screen Positive H 06/12/23 06/13/23 20:00 06:39 RBC 4.57 L Hgb 13.5 L D Hct 40.1 L ABG pCO2 47.0 H ABG HCO3 27.6 H ABG Total CO2 29.1 H ABG Base Excess 2.6 H VBG pCO2 VBG HCO3 VBG Total CO2 VBG Base Excess Potassium 2.9 L* D Carbon Dioxide 32 H Glucose Phosphorus Total Protein 5.7 L Albumin 3.2 L D Globulin Salicylates Urine Opiates Screen Acetaminophen Ur Amphetamines Screen U Benzodiazepines Scrn U Marijuana (THC) Screen Assessment and Plan *Assessment and plan (1) On mechanically assisted ventilation: Status: Acute Category: Medical Code(s): Z99.11 - Dependence on respirator [ventilator] status (2) Acute hypoxemic respiratory failure: Status: Acute Category: Medical Code(s): J96.01 - Acute respiratory failure with hypoxia (3) Altered mental state: Status: Acute Category: Medical Code(s): R41.82 - Altered mental status, unspecified (4) Drug overdose: Status: Acute Category: Medical Code(s): T50.901A - Poisoning by unspecified drugs, medicaments and biological substances, accidental (unintentional), initial encounter Plan Mr. Oreilly is a 43-year-old male with reported history of bipolar disorder diabetes hypertension chronic and prior suicide attempts presented to the ER with concern for intentional overdose intubated for airway protection pulmonary was called for further evaluation and management. As per the ER note patient took 90 tablets with 3 mg of gabapentin, 18 tablets of 30 mg of morphine extended release and 50 tablets of lisinopril hydrochlorothiazide 20 mg / 12.5 mg. Hemodynamically stable. Bradycardic. Severe hypokalemia , BUN/creatinine within normal limits. Magnesium within normal limits at 2.0. EKG sinus bradycardia. QTc corrected at 472. Will closely monitor. Plan: Continue propofol and fentanyl for sedation purposes but currently off sedation awaiting medication to improve. Continue mechanical ventilatory support, currently minimal ventilator settings. Chest x-ray from this morning, ET tube in place with no dense consolidation or airspace disease. Evidence of leukocytosis. No need for antibiotics at this point of time Hemodynamically stable. Bradycardia improving. MAP Greater than 65. Abdomen soft nontender. Continue to monitor BUN/creatinine normal, adequate urine output. Follow with creatinine kinase. Potassium repletion, recommend following repeat labs. Continue maintenance fluids to maintain adequate urine output of 150 to 200 cc/h - Continue mechanical ventilatory support - Continue AnalgoSedation with Propofol and Fentanyl with CPOT gal less than or euqal to 2 and RASS goal of to 2 (No need for deep sedation) - VAP bundle Recommend elevate head of the bed at 30 to 45 degrees Recommend oral care with chlorhexidne Recommend GI ulcer prophylaxis - Famotidine 20mg IV BID Recommend chemical DVT prophylaxis Total critical care time spent on this patient is 35 minutes managing acute hypoxic respiratory failure needing mechanical ventilation. This time spent include reviewing test results including interpreting chest x-rays, labs and arterial blood gas, optimizing the ventilator settings,formulating plan of care, discussing the plan of care with the team and the nursing staff.
--- NOTE | 2023-06-13 09:55 | XR_ITS ---
FINAL REPORT CLINICAL HISTORY: Hypoxia COMPARISON: None FINDINGS: The heart size is mildly enlarged. ET tube is present with the tip 4 cm superior to the carmen. The mediastinum is normal. There is no focal infiltrate or edema. There are no pleural effusions. There is no pneumothorax. There is no osseous abnormality. IMPRESSION: No acute cardiopulmonary process Reviewed, Interpreted and Dictated by Edmond Mead MD Transcribed by Jimena Daley Authenticated and [facility]
--- NOTE | 2023-06-13 10:00 | PC.NURSE ---
fentanyl turned off at this time
[2023-06-13 10:31] LABS: Creatine Kinase 95 U/L (55-170)
[2023-06-13 11:45] LABS: POC Glucose,Bedside 92 (70-110)
--- NOTE | 2023-06-13 13:00 | SW/DCPLANNER ---
72 hour involuntary hold paperwork completed by ED has been added to patient's chart.
[2023-06-13 13:04] LABS: POC Glucose,Bedside 92 (70-110)
[2023-06-13] MEDS: FENTANYL 12.5MCG/0.25ML 12.5 MCG IV (17:52)
--- NOTE | 2023-06-13 17:57 | EXP.ACUTE.PN ---
Subjective *Date: 06/13/23 *Time: 17:57 Interval history: Weaning sedation this morning. Still intubated. Minimal response to verbal or physical stimuli. Not opening eyes. Afebrile overnight, on minimal vent settings. Medical Exam Vital signs and Labs for Last 24 Hours: Vital Signs Temp Pulse Pulse Resp BP BP Pulse Ox 06/13/23 16:00 60 06/13/23 17:00 56 L 18 151/100 H 97 06/13/23 17:00 06/13/23 15:55 57 L 98 06/13/23 16:00 57 L 18 137/86 98 06/13/23 15:44 97.7 F 06/13/23 15:00 06/13/23 15:00 64 18 140/80 97 06/13/23 14:00 52 L 18 127/85 98 06/13/23 13:00 51 L 18 131/86 98 06/13/23 12:00 54 L 06/13/23 11:00 52 L 18 102/60 L 99 06/13/23 12:00 53 L 97 06/13/23 13:00 06/13/23 11:00 06/13/23 12:00 53 L 18 90/55 L 97 06/13/23 10:00 61 18 91/58 L 97 06/13/23 09:00 54 L 18 98/51 L 98 06/13/23 08:00 60 18 90/39 L 97 06/13/23 09:00 06/13/23 11:23 97.4 F L 06/13/23 08:00 91 H 06/13/23 08:00 60 97 06/13/23 07:38 97.7 F 06/13/23 06:48 98 06/13/23 04:00 97.8 F 06/13/23 03:00 60 18 105/61 L 97 06/13/23 02:00 58 L 18 120/76 100 06/13/23 06:00 54 L 18 110/67 98 06/13/23 05:00 56 L 18 113/68 97 06/13/23 05:00 06/13/23 04:00 06/13/23 04:00 57 L 18 114/67 98 06/13/23 03:00 06/13/23 02:36 18 100 06/12/23 22:00 98 F 65 18 103/62 L 94 L 06/12/23 22:15 107/65 L 06/12/23 22:30 101/43 L 06/12/23 22:45 111/48 L 06/12/23 23:15 95/45 L 06/12/23 23:45 105/40 L 06/12/23 23:30 96/14 L 06/13/23 01:00 54 L 18 110/68 100 06/13/23 01:00 06/13/23 00:00 97.6 F 60 18 96/11 L 99 06/13/23 00:00 06/12/23 23:49 18 99 06/12/23 23:00 06/12/23 21:45 06/12/23 22:15 18 100 06/12/23 21:28 97 F L 61 18 115/80 06/12/23 21:15 97 F L 63 18 112/82 100 06/12/23 21:10 97 F L 63 18 115/77 100 06/12/23 21:05 97.0 F L 63 18 115/80 100 06/12/23 21:04 97.0 F L 64 18 113/81 98 06/12/23 21:00 97.2 F L 64 18 106/70 L 99 06/12/23 20:54 97.2 F L 64 18 101/68 L 99 06/12/23 20:50 97.3 F L 67 18 97/65 L 99 06/12/23 20:48 97.3 F L 65 18 94/56 L 99 06/12/23 20:46 97.3 F L 65 18 88/55 L 99 06/12/23 20:44 97.3 F L 67 18 87/54 L 99 06/12/23 20:43 97.3 F L 67 18 83/47 L 99 06/12/23 20:40 97.3 F L 67 18 79/49 L 99 06/12/23 20:38 97.3 F L 70 81/51 L 99 06/12/23 20:35 97.3 F L 70 18 82/53 L 99 06/12/23 20:25 97.3 F L 66 18 115/69 99 06/12/23 20:23 97.3 F L 65 18 120/81 99 06/12/23 20:21 97.3 F L 65 18 109/66 L 98 06/12/23 20:19 97.3 F L 70 18 109/40 L 98 06/12/23 20:15 97.3 F L 65 18 86/54 L 100 06/12/23 20:11 97.2 F L 65 18 87/59 L 99 06/12/23 20:10 97.0 F L 70 18 86/57 L 100 06/12/23 19:26 18 98 06/12/23 18:30 64 19 109/76 L 88 L 06/12/23 18:24 62 19 109/76 L 97 06/12/23 18:17 61 14 111/70 100 O2 Del Method O2 Flow Rate FiO2 06/13/23 16:00 06/13/23 17:00 Mechanical Ventilation 06/13/23 17:00 Mechanical Ventilation 06/13/23 15:55 Mechanical Ventilation 06/13/23 16:00 Mechanical Ventilation 06/13/23 15:44 06/13/23 15:00 Mechanical Ventilation 06/13/23 15:00 Mechanical Ventilation 06/13/23 14:00 Mechanical Ventilation 06/13/23 13:00 Mechanical Ventilation 06/13/23 12:00 06/13/23 11:00 Mechanical Ventilation 06/13/23 12:00 Mechanical Ventilation 06/13/23 13:00 Mechanical Ventilation 06/13/23 11:00 Mechanical Ventilation 06/13/23 12:00 Mechanical Ventilation 06/13/23 10:00 Mechanical Ventilation 06/13/23 09:00 Mechanical Ventilation 06/13/23 08:00 Mechanical Ventilation 06/13/23 09:00 Mechanical Ventilation 06/13/23 11:23 06/13/23 08:00 06/13/23 08:00 Mechanical Ventilation 06/13/23 07:38 06/13/23 06:48 06/13/23 04:00 06/13/23 03:00 Mechanical Ventilation 06/13/23 02:00 Mechanical Ventilation 06/13/23 06:00 Mechanical Ventilation 06/13/23 05:00 Mechanical Ventilation 06/13/23 05:00 Mechanical Ventilation 06/13/23 04:00 Mechanical Ventilation 06/13/23 04:00 Mechanical Ventilation 06/13/23 03:00 Mechanical Ventilation 06/13/23 02:36 21 06/12/23 22:00 Mechanical Ventilation 40 06/12/23 22:15 06/12/23 22:30 06/12/23 22:45 06/12/23 23:15 06/12/23 23:45 06/12/23 23:30 06/13/23 01:00 Mechanical Ventilation 06/13/23 01:00 Mechanical Ventilation 06/13/23 00:00 Mechanical Ventilation 06/13/23 00:00 Mechanical Ventilation 06/12/23 23:49 06/12/23 23:00 Mechanical Ventilation 06/12/23 21:45 Mechanical Ventilation 06/12/23 22:15 06/12/23 21:28 Mechanical Ventilation 06/12/23 21:15 Mechanical Ventilation 06/12/23 21:10 Mechanical Ventilation 06/12/23 21:05 Mechanical Ventilation 06/12/23 21:04 Mechanical Ventilation 06/12/23 21:00 Mechanical Ventilation 06/12/23 20:54 Mechanical Ventilation 06/12/23 20:50 Mechanical Ventilation 06/12/23 20:48 Mechanical Ventilation 06/12/23 20:46 Mechanical Ventilation 06/12/23 20:44 Mechanical Ventilation 06/12/23 20:43 Mechanical Ventilation 06/12/23 20:40 Mechanical Ventilation 06/12/23 20:38 06/12/23 20:35 06/12/23 20:25 06/12/23 20:23 Mechanical Ventilation 06/12/23 20:21 Mechanical Ventilation 06/12/23 20:19 Mechanical Ventilation 06/12/23 20:15 Mechanical Ventilation 06/12/23 20:11 Mechanical Ventilation 06/12/23 20:10 Mechanical Ventilation 06/12/23 19:26 25 06/12/23 18:30 Nasal Cannula 2 06/12/23 18:24 Room Air 2 06/12/23 18:17 Nasal Cannula 2 Intake and Output 06/13/23 06/13/23 06/13/23 07:59 15:59 23:59 Intake Total 1932.341 / 3762.841 1573.500 / 3762.841 257 / 3762.841 Output Total 390 / 1460 835 / 1460 235 / 1460 Balance 1542.341 / 2302.841 738.500 / 2302.841 22 / 2302.841 Intake: Intake, Total IV Amount 1932.341 / 3762.841 1573.500 / 3762.841 257 / 3762.841 0.9 % Sodium Chloride 1000ML 1, 1590 / 2928 1081 / 2928 257 / 2928 000 ml @ 125 mls/hr IV .Q8H SACHIN Rx#:[id number] Fentanyl Citrate/Pf 1,000 mcg 62 / 62 In 0.9 % Sodium Chloride 80 ml @ 10 MCG/HR 1 mls/hr IV .Q24H SACHIN Rx#:[id number] KCl 10mEq/100ml 100 ml @ 100 300 / 300 mls/hr IV Q1H SACHIN Rx#:[id number] propofoL 100 ml @ 35 MCG/KG/MIN 181 / 181 22.861 mls/hr IV .Q4H23M SACHIN Rx#:[id number] Output: Output, Urine Amount 390 / 390 Output, Urine Amount (Catheter) 835 / 1070 235 / 1070 Johnson 835 / 1070 235 / 1070 Other: Weight 71.169 kg 71.16 kg Patient Weight 06/13/23 23:59 Weight 71.16 kg Laboratory Results - last 24 hr 06/12/23 17:23: Carbon Dioxide 40 H, Anion Gap 8.9, BUN 19, Creatinine 1.20, Estimated Creat Clear 120, Estimated GFR 65, Est GFR ( Amer) 79, Glucose 201 H, Calcium 9.5, Phosphorus 5.3 H, Magnesium 2.3, Total Bilirubin 0.5, AST 35, ALT 24, Alkaline Phosphatase 55, Troponin I < 0.01, Total Protein 7.6, Albumin 4.3, Globulin 3.3 H, Albumin/Globulin Ratio 1.3, Salicylates < 1.0 L, Acetaminophen < 10 L, Plasma/Serum Alcohol < 10 06/12/23 17:24: VBG pH 7.36, VBG pCO2 63.9 H, VBG pO2 32.3, VBG HCO3 34.9 H, VBG Total CO2 36.8 H, VBG O2 Saturation 63.7, VBG Base Excess 9.4 H 06/12/23 19:03: Urine Color Yellow, Urine Appearance Clear, Urine pH 7.5, Ur Specific [place] 1.015, Urine Protein Negative, Urine Glucose (UA) Negative, Urine Ketones Negative, Urine Blood Negative, Urine Nitrate Negative, Urine Bilirubin Negative, Urine Urobilinogen 0.2, Ur Leukocyte Esterase Negative, Urine RBC None, Urine WBC None, Ur Squamous Epith Cells None, Urine Bacteria None, Urine Opiates Screen Positive H, Urine Methadone Screen Negative, Ur Barbituates Screen Negative, Ur Phencyclidine Scrn Negative, Ur Amphetamines Screen Positive H, U Benzodiazepines Scrn Positive H, Urine Cocaine Screen Negative, U Marijuana (THC) Screen Positive H 06/12/23 20:00: Specimen Source Right radial, O2 % 25, ABG pH 7.39, ABG pCO2 47.0 H, ABG pO2 82.3, ABG HCO3 27.6 H, ABG Total CO2 29.1 H, ABG O2 Saturation 96, ABG Base Excess 2.6 H, Shay Test Patient unable, Vent Rate 18, Tidal Volume 420, PEEP 5 06/13/23 05:58: POC Glucose 92 06/13/23 06:39: WBC 5.7 D, RBC 4.57 L, Hgb 13.5 L D, Hct 40.1 L, MCV 87.8, MCH 29.5, MCHC 33.6, RDW 14.8, Plt Count 234, MPV 8.3, Neut % (Auto) 46.8, Lymph % (Auto) 43.8, [place] % (Auto) 7.4, Eos % (Auto) 1.5, Baso % (Auto) 0.6, Neut # (Auto) 2.7, Lymph # (Auto) 2.5, [place] # (Auto) 0.4, Eos # (Auto) 0.1, Baso # (Auto) 0.0, Sodium 141, Potassium 2.9 L* D, Chloride 104, Carbon Dioxide 32 H, Anion Gap 7.9, BUN 16, Creatinine 0.90 D, Estimated Creat Clear 104, Estimated GFR 91, Est GFR ( Amer) 110 D, Glucose 93 D, Calcium 8.7, Magnesium 2.0 D, Total Bilirubin 0.4, AST 24 D, ALT 17 D, Alkaline Phosphatase 55, Total Creatine Kinase 95, Troponin I < 0.01, Total Protein 5.7 L, Albumin 3.2 L D, Globulin 2.5, Albumin/Globulin Ratio 1.3 06/13/23 12:56: POC Glucose 92 I & O for Labs for Last 24 Hours: Intake & Output 06/10/23 06/11/23 06/12/23 06/13/23 23:59 23:59 23:59 23:59 Intake Total 33.164 / 33.164 3762.841 / 3762.841 Output Total 1595 / 1615 1460 / 1460 Balance -1561.836 / -7477.048 5450.841 / 2302.841 Weight 108.862 kg 71.16 kg Constitutional: Present no acute distress and average body habitus Head: Present atraumatic and normocephalic Comment:: ETT and OG in place; pupils reactive and equal Neck: Present normal inspection Respiratory: Present patient mechanically ventilated; Absent rhonchi, wheezes or crackles Cardiac: Present Reg Rate and Rhythm GI: Present soft and normal bowel sounds; Absent distention or tenderness Extremities: Present normal inspection and full ROM Skin: Present intact; Absent erythema Comment:: Spontaneous movement, sedated Assessment and Plan *Assessment and plan (1) Acute hypoxemic respiratory failure: Status: Acute Category: Medical Code(s): J96.01 - Acute respiratory failure with hypoxia (2) Suicidal intent: Status: Acute Category: Medical Code(s): R45.851 - Suicidal ideations (3) Intentional drug overdose: Status: Acute Qualifiers: Encounter type: initial encounter Qualified Code(s): T50.902A - Poisoning by unspecified drugs, medicaments and biological substances, intentional self-harm, initial encounter Category: Medical Code(s): T50.902A - Poisoning by unspecified drugs, medicaments and biological substances, intentional self-harm, initial encounter (4) Bipolar disorder: Status: Acute Qualifiers: Active/Remission status: currently active Current bipolar episode type: depressed Current episode severity: severe Psychotic features: unspecified Qualified Code(s): F31.4 - Bipolar disorder, current episode depressed, severe, without psychotic features Category: Medical Code(s): F31.9 - Bipolar disorder, unspecified (5) Hx of diabetes mellitus: Status: Acute Category: Medical Code(s): Z86.39 - Personal history of other endocrine, nutritional and metabolic disease (6) HTN (hypertension): Status: Acute Qualifiers: Hypertension type: unspecified Qualified Code(s): I10 - Essential (primary) hypertension Category: Medical Code(s): I10 - Essential (primary) hypertension Plan 43-year-old male with PMHx of bipolar disorder, diabetes, hypertension, chronic pain, and prior suicide attempt presenting to the emergency department after intentional overdose as a SA. patient initially reported the intention of take his life. he used Gbapentin, Morphine and Lisinopril-HCTZ Arrived via EMS after a relative found him and make him to swallow baking soda to provoke his vomit. On arrival patient was vomiting, on AMS, lethargic. Entubated to secure air way, after many unsuccessfully attempts of narcan IV. labs are grossly unremarkable. Urine toxicity also obtained, revealed positive also for marijuana, opiates, benzos, and amphetamine. Poison control center was called. Recommendations in place. Discussed with ED provider for admission. Pulmonology consulted to assist with vent management. Weaning sedation for SBT. Patient not having significant response this morning. Continues to require ICU level care. Plan as follow: -Acute hypoxemic respiratory failure status post mechanical ventilated, secondary to a suicide attempt by intentional drug overdose: Pulmonology consulted, appreciate their assistance. Continue with current settings on vent of tidal volume 420, FiO2 21, RR 18, PEEP 5 Continue propofol and fentanyl for sedation purposes but currently off sedation awaiting medication to improve. Chest x-ray from this morning, ET tube in place with no dense consolidation or airspace disease. Evidence of leukocytosis. No need for antibiotics at this point of time Hemodynamically stable. Bradycardia improving. MAP Greater than 65. As needed fentanyl bolus as needed for sedation antibiotics for 20 -Suicide attempt in the setting of prior history, bipolar, and major depression: Psych consult, social work consulted and assisting with eval for inpatient psych. Will begin process once patient medically stable and off ventilator. Continue normal saline for goal urine output 100 to 200 cc an hour. White cell count 5.7, hemoglobin 13. Kidney function with BUN 16 creatinine 0.9. Potassium low at 2.9, will replace per tube 40 mEq twice daily and IV 30 mEq today. Repeat CBC, CMP, magnesium ordered for the morning. -History of diabetes: Accu-Cheks every 6h Monitor for hypo or hyperglycemia Sliding scale insulin History of hypertension: Hold hypertensive medication. Lovenox for DVT prophylaxis. Protonix for GI protection IV daily Full code ICU/Critical care attestation This patient is critically ill with 35 minutes devoted solely to this patient managing life/organ supporting interventions that required physician assessment. This includes time spent making adjustments in ventilator settings, IV fluid administration, titration of pressors, adjustments of medications, discussion of patient with consultants and other care providers as well as updating patient and/or family (if patient by virtue of his/her condition is unable to participate in decision making). This does not include time spent performing separately billed procedures. Time is not concurrent with that of other providers.
--- NOTE | 2023-06-13 18:02 | PC.NURSE ---
pt remains intubated, has been off sedation since approximately 1230, per Dr. Cunha, use fentanyl pushes before turning sedation back on, has woken up a couple of times, one fentanyl push given per JUL so far this shift, jordan in place, K+ replaced this shift
[2023-06-13 20:32] LABS: POC Glucose,Bedside 83 (70-110)
--- NOTE | 2023-06-13 20:49 | PC.NURSE ---
Addendum entered by Gisselle Armijo RN 06/14/23 04:34: THIS PT HAD 2 VISITORS COME THROUGH ED CLAIMING TO BE PARENTS OF THIS PT. ONCE ON THE FLOOR, THIS RN QUESTIONED THE VISITORS ABOUT THEIR RELATION TO THE PT AND THEY STATED THEY WERE MOTHER AND FATHER. ONCE THIS RN QUESTIONED THE VISITORS AGAIN ABOUT BEING THIS PT'S BIOLOGICAL PARENTS THEY THEN ANSWERED AND STATED THAT THEY WERE NOT BIO PARENTS, BUT LIKE PARENTS. THIS PT HAS 2 CHILDREN THAT THIS RN IS AWARE OF AND THEY ARE UNDERAGE AND UNABLE TO MAKE LEGAL DECISIONS. FROM THIS RN'S KNOWLEDGE, THIS PT'S NEXT OF KIN IS HIS PARENT'S WHO ARE LOCATED IN [place] AND THEIR CONTACT INFO IS UNAVAILABLE AT THIS TIME PER THE 2 VISITORS AT BEDSIDE. THE VISITOR'S NAMES ARE: EMMA DUMONT AND ANALIA KARLA AND ARE NO RELATION TO THIS PT BESIDES FRIENDS. PT IS ON THE VENT AND UNABLE TO MAKE DECISIONS FOR HIMSELF AT THIS TIME. ONCE PT IS EXTUBATED HE WILL BE ASKED WHO HIS EMERGENCY CONTACT IS AND WHO IS ALLOWED TO RECEIVE INFORMATION ON THIS PT WHILE IN THE HOSPITAL. CHART WILL BE UPDATED AT THAT TIME. PT IS A/OX4 PER WRITTEN COMMUNICATION WITH THIS RN; THIS PT GAVE THIS RN HIS PARENT'S CONTACT INFORMATION AND HIS CHART HAS BEEN UPDATED WITH THE PROPER NEXT OF KIN CONTACT INFORMATION. PER PT'S REQUEST, THIS RN CALLED PT'S PARENT'S, CLINT WHO LIVE IN [place], TO UPDATE THEM ABOUT THE PT'S CURRENT SITUATION. THIS RN IS UNSURE WHY THE VISITORS / FRIENDS AT BEDSIDE LIED ABOUT THEIR RELATION TO THE PT AND NOT KNOWING HIS BIO PARENT'S CONTACT INFORMATION, BUT THIS RN MADE PT AWARE OF WHAT HAD HAPPENED WITH HIS VISITORS/FRIENDS AND THIS RN ASKED IF THE PT FELT SAFE AT HOME WITH THEM. PT NODDED YES THAT HE FELT SAFE. THIS RN ASKED IF THIS PT WAS SUICIDAL STILL AND THE PT WROTE NO AND THAT HE HAD LOTS GOING ON AND THAT IS WHY HE ATTEMPTED SUICIDE. THE PT MADE THIS RN AWARE THAT THE GABAPENTIN AND LISINOPRIL / HCTZ WERE HIS OWN PRESCRIPTIONS, BUT THE MORPHINE TAKEN WAS HIS FRIEND, EMMA DUMONT'S PRESCRIPTION. CASE MANAGEMENT AND SPIDER ASSEMBLER CONSULTS WILL BE RECOMMENDED PER THIS RN. Original Note: THIS PT HAD 2 VISITORS COME THROUGH ED CLAIMING TO BE PARENTS OF THIS PT. ONCE ON THE FLOOR, THIS RN QUESTIONED THE VISITORS ABOUT THEIR RELATION TO THE PT AND THEY STATED THEIR WERE MOTHER AND FATHER. ONCE THIS RN QUESTIONED THE VISITORS AGAIN ABOUT BEING THIS PT'S BIOLOGICAL PARENTS THEY THEN ANSWERED AND STATED THAT THEY WERE NOT BIO PARENTS, BUT LIKE PARENTS. THIS PT HAS 2 CHILDREN THAT IS RN IS AWARE OF AND THEY ARE UNDERAGE AND UNABLE TO MAKE LEGAL DECISIONS. FROM THIS RN'S KNOWLEDGE, THIS PT'S NEXT OF KIN IS HIS PARENT'S WHO ARE LOCATED IN [place] AND THEIR CONTACT INFO IS UNAVAILABLE AT THIS TIME. THE VISITOR'S NAMES ARE: EMMA JULIA AND ANALIA ACOSTA AND ARE NO RELATION TO THIS PT BESIDES FRIENDS. PT IS ON THE VENT AND UNABLE TO MAKE DECISIONS FOR HIMSELF AT THIS TIME. ONCE PT IS EXTUBATED HE WILL BE ASKED WHO HIS EMERGENCY CONTACT IS AND WHO IS ALLOWED TO RECEIVE INFORMATION ON THIS PT WHILE IN THE HOSPITAL. CHART WILL BE UPDATED AT THAT TIME.
[2023-06-13] MEDS: PANTOPRAZOLE 40MG VIAL 40 MG IV (22:03)
[2023-06-13 22:16] LABS: POC Glucose,Bedside 96 (70-110)
[2023-06-14] VITALS (24 sets, daily range): BP systolic 85–158; BP diastolic 49–95; PULSE 60–90; RESP 11–19; TEMP 36.8–37.7; O2SAT 93–98; BMI 32.0
[2023-06-14] MEDS: FENTANYL 12.5MCG/0.25ML 12.5 MCG IV (00:11)
[2023-06-14 05:52] LABS: POC Glucose,Bedside 106 (70-110)
--- NOTE | 2023-06-14 06:00 | XR_ITS ---
PROCEDURE INFORMATION: Exam: XR Chest Exam date and time: 06/14/2023 6:17 AM Age: 43 years old Clinical indication: Other: Ett placement; Additional info: Monitor lung volumes, ett placement TECHNIQUE: Imaging protocol: Radiologic exam of the chest. Views: 1 view. COMPARISON: CR XR CHEST PORTABLE 06/13/2023 10:16 AM FINDINGS: Tubes, catheters and devices: An endotracheal catheter is noted with the tip overlying the level of thoracic inlet. Enteric catheter extends to the abdomen, tip not imaged. Lungs: No consolidation. Pleural spaces: Unremarkable. No pleural effusion. No pneumothorax. Heart/Mediastinum: Unremarkable. No cardiomegaly. Bones/joints: Unremarkable. IMPRESSION: Support lines and catheters in place as described.
[2023-06-14 07:10] LABS: Alanine Aminotransferase 19 U/L (12-78); Albumin Level 3.7 g/dl (3.5-5.0); Albumin/Globulin Ratio 1.3 (1.1-1.8); Alkaline Phosphatase 64 U/L (38-126); Anion Gap 13.2 mEq/L (5-15); Aspartate Amino Transferase 26 U/L (17-59); Bilirubin,Total 0.9 mg/dl (0.2-1.3); Blood Urea Nitrogen 9 mg/dl (9-20); Calcium 8.9 mg/dl (8.4-10.2); Carbon Dioxide 26 mmol/L (22.0-30.0); Chloride 100 mmol/L (98-107); Creatinine Clearance Estimated 157 mL/min (50-200); Estimated Glomerular Filt Rate 91 ml/min (>60); GFR (African American) 110 ML/MIN (>60); Globulin 2.9 g/dL (1.3-3.2); Glucose 100 mg/dl (74-100); Magnesium 1.8 mg/dl (1.6-2.3); Potassium 3.2 mmoL/L (3.5-5.1); Sodium 136 mmol/L (136-145); Total Protein,Serum 6.6 g/dl (6.3-8.2)
[2023-06-14 07:14] LABS: Basophils % 0.3 % (0.1-2.0); Eosinophils # 0.1 K/mm3 (0.0-0.4); Eosinophils % 0.7 % (0.1-12.0); Hematocrit 42.7 % (42.0-52.0); Hemoglobin 14.5 g/dL (14.1-18.0); Lymphocytes # 2.3 K/mm3 (0.7-4.5); Lymphocytes % 21.9 % (10-50); Mean Corpuscular HGB Conc 33.9 g/dL (31.8-35.4); Mean Corpuscular Volume 88.3 fl (80-94); Mean Platelet Volume 8.4 fl (7.4-10.4); Monocytes # 0.8 K/mm3 (0.1-1.0); Monocytes % 7.3 % (1.7-9.3); Neutrophils # 7.3 K/mm3 (1.8-7.8); Neutrophils % 69.8 % (37.0-80.0); Platelet Count 244 K/mm3 (142-424); Red Blood Count 4.83 M/mm3 (4.60-6.20); Red Cell Distribution Width 14.8 % (11.5-17.5); White Blood Count 10.5 K/mm3 (4.8-10.8)
--- NOTE | 2023-06-14 07:22 | P.PN_ITS ---
Subjective *Date: 06/14/23 *Time: 12:17 Interval history: Patient passed SBT this morning. On minimal vent settings. Anticipate extubation today. Following commands and alert with sedation off. Has made good urine with over 3 L of output in the past 24 hours. Medical Exam Vital signs and Labs for Last 24 Hours: Vital Signs Temp Pulse Pulse Resp BP Pulse Ox O2 Del Method 06/14/23 06:35 96 06/14/23 06:00 79 17 126/81 97 Mechanical Ventilation 06/14/23 05:00 100 F H 75 18 137/85 Mechanical Ventilation 06/14/23 05:00 Mechanical Ventilation 06/14/23 02:15 18 95 06/14/23 00:00 Mechanical Ventilation 06/14/23 01:00 75 18 141/83 H Mechanical Ventilation 06/14/23 00:00 99.4 F 69 18 145/85 H 95 Mechanical Ventilation 06/13/23 23:00 74 18 153/98 H 94 L Mechanical Ventilation 06/13/23 22:00 77 18 149/92 H 93 L Mechanical Ventilation 06/13/23 21:00 77 18 157/93 H 94 L Mechanical Ventilation 06/14/23 01:00 Mechanical Ventilation 06/13/23 23:00 Mechanical Ventilation 06/13/23 21:00 Mechanical Ventilation 06/13/23 20:00 60 06/14/23 00:17 18 94 L 06/13/23 21:57 18 92 L 06/14/23 04:00 76 18 146/87 H Mechanical Ventilation 06/14/23 04:00 Mechanical Ventilation 06/14/23 03:00 73 19 158/95 H Mechanical Ventilation 06/14/23 03:00 Mechanical Ventilation 06/14/23 02:00 75 18 155/94 H 95 Mechanical Ventilation 06/13/23 20:00 Mechanical Ventilation 06/13/23 20:00 100.0 F H 67 22 164/95 H Mechanical Ventilation 06/13/23 20:06 18 98 06/13/23 18:53 Mechanical Ventilation 06/13/23 18:52 68 18 160/93 H 98 Mechanical Ventilation 06/13/23 18:00 61 18 151/95 H 96 Mechanical Ventilation 06/13/23 18:08 Mechanical Ventilation 06/13/23 18:07 27 H 100 06/13/23 16:00 60 06/13/23 17:00 56 L 18 151/100 H 97 Mechanical Ventilation 06/13/23 17:00 Mechanical Ventilation 06/13/23 15:55 57 L 98 Mechanical Ventilation 06/13/23 16:00 57 L 18 137/86 98 Mechanical Ventilation 06/13/23 15:44 97.7 F 06/13/23 15:00 Mechanical Ventilation 06/13/23 15:00 64 18 140/80 97 Mechanical Ventilation 06/13/23 14:00 52 L 18 127/85 98 Mechanical Ventilation 06/13/23 13:00 51 L 18 131/86 98 Mechanical Ventilation 06/13/23 12:00 54 L 06/13/23 11:00 52 L 18 102/60 L 99 Mechanical Ventilation 06/13/23 12:00 53 L 97 Mechanical Ventilation 06/13/23 13:00 Mechanical Ventilation 06/13/23 11:00 Mechanical Ventilation 06/13/23 12:00 53 L 18 90/55 L 97 Mechanical Ventilation 06/13/23 10:00 61 18 91/58 L 97 Mechanical Ventilation 06/13/23 09:00 54 L 18 98/51 L 98 Mechanical Ventilation 06/13/23 08:00 60 18 90/39 L 97 Mechanical Ventilation 06/13/23 09:00 Mechanical Ventilation 06/13/23 11:23 97.4 F L 06/13/23 08:00 91 H 06/13/23 08:00 60 97 Mechanical Ventilation 06/13/23 07:38 97.7 F FiO2 06/14/23 06:35 06/14/23 06:00 06/14/23 05:00 06/14/23 05:00 06/14/23 02:15 06/14/23 00:00 06/14/23 01:00 06/14/23 00:00 06/13/23 23:00 06/13/23 22:00 06/13/23 21:00 06/14/23 01:00 06/13/23 23:00 06/13/23 21:00 06/13/23 20:00 06/14/23 00:17 06/13/23 21:57 06/14/23 04:00 06/14/23 04:00 06/14/23 03:00 06/14/23 03:00 06/14/23 02:00 06/13/23 20:00 06/13/23 20:00 06/13/23 20:06 06/13/23 18:53 06/13/23 18:52 06/13/23 18:00 06/13/23 18:08 06/13/23 18:07 06/13/23 16:00 06/13/23 17:00 06/13/23 17:00 06/13/23 15:55 06/13/23 16:00 06/13/23 15:44 06/13/23 15:00 06/13/23 15:00 06/13/23 14:00 06/13/23 13:00 06/13/23 12:00 06/13/23 11:00 06/13/23 12:00 06/13/23 13:00 06/13/23 11:00 06/13/23 12:00 06/13/23 10:00 06/13/23 09:00 06/13/23 08:00 06/13/23 09:00 06/13/23 11:23 06/13/23 08:00 06/13/23 08:00 06/13/23 07:38 Intake and Output 06/13/23 06/13/23 06/14/23 15:59 23:59 07:59 Intake Total 1573.500 / 3963.841 458 / 3963.841 1376 / 1376 Output Total 835 / 1710 485 / 1710 2100 / 2100 Balance 738.500 / 2253.841 -27 / 2253.841 -724 / -724 Intake: Intake, Total IV Amount 1573.500 / 3963.841 458 / 3963.841 1376 / 1376 0.9 % Sodium Chloride 1000ML 1, 1081 / 3129 458 / 3129 1376 / 1376 000 ml @ 125 mls/hr IV .Q8H SACHIN Rx#:[id number] KCl 10mEq/100ml 100 ml @ 100 300 / 300 mls/hr IV Q1H SACHIN Rx#:[id number] Output: Output, Urine Amount 2100 / 2100 Output, Urine Amount (Catheter) 835 / 1320 485 / 1320 Johnson 835 / 1320 485 / 1320 Other: Weight 71.16 kg 107.184 kg Patient Weight 06/14/23 23:59 Weight 107.184 kg Laboratory Results - last 24 hr 06/13/23 05:58: POC Glucose 92 06/13/23 06:39: WBC 5.7 D, RBC 4.57 L, Hgb 13.5 L D, Hct 40.1 L, MCV 87.8, MCH 29.5, MCHC 33.6, RDW 14.8, Plt Count 234, MPV 8.3, Neut % (Auto) 46.8, Lymph % (Auto) 43.8, Blount % (Auto) 7.4, Eos % (Auto) 1.5, Baso % (Auto) 0.6, Neut # (Auto) 2.7, Lymph # (Auto) 2.5, Blount # (Auto) 0.4, Eos # (Auto) 0.1, Baso # (Auto) 0.0, Sodium 141, Potassium 2.9 L* D, Chloride 104, Carbon Dioxide 32 H, Anion Gap 7.9, BUN 16, Creatinine 0.90 D, Estimated Creat Clear 104, Estimated GFR 91, Est GFR ( Amer) 110 D, Glucose 93 D, Calcium 8.7, Magnesium 2.0 D, Total Bilirubin 0.4, AST 24 D, ALT 17 D, Alkaline Phosphatase 55, Total Creatine Kinase 95, Troponin I < 0.01, Total Protein 5.7 L, Albumin 3.2 L D, Globulin 2.5, Albumin/Globulin Ratio 1.3 06/13/23 12:56: POC Glucose 92 06/13/23 16:51: POC Glucose 83 06/13/23 22:02: POC Glucose 96 06/14/23 05:45: POC Glucose 106 06/14/23 06:41: WBC 10.5 D, RBC 4.83, Hgb 14.5, Hct 42.7, MCV 88.3, MCH 30.0, MCHC 33.9, RDW 14.8, Plt Count 244, MPV 8.4, Neut % (Auto) 69.8, Lymph % (Auto) 21.9, Blount % (Auto) 7.3, Eos % (Auto) 0.7, Baso % (Auto) 0.3, Neut # (Auto) 7.3, Lymph # (Auto) 2.3, Blount # (Auto) 0.8, Eos # (Auto) 0.1, Baso # (Auto) 0.0, Sodium 136, Potassium 3.2 L, Chloride 100, Carbon Dioxide 26, Anion Gap 13.2, BUN 9 D, Creatinine 0.90, Estimated Creat Clear 157, Estimated GFR 91, Est GFR ( Amer) 110, Glucose 100, Calcium 8.9, Magnesium 1.8, Total Bilirubin 0.9, AST 26, ALT 19, Alkaline Phosphatase 64, Total Protein 6.6, Albumin 3.7 D, Globulin 2.9, Albumin/Globulin Ratio 1.3 I & O for Labs for Last 24 Hours: Intake & Output 06/11/23 06/12/23 06/13/23 06/14/23 23:59 23:59 23:59 23:59 Intake Total 33.164 / 33.164 3963.841 / 3963.841 1376 / 1376 Output Total 1595 / 1615 1710 / 1710 2100 / 2100 Balance -1561.836 / -2955.474 7376.841 / 2253.841 -724 / -724 Weight 108.862 kg 71.16 kg 107.184 kg Constitutional: Present no acute distress and average body habitus Head: Present atraumatic and normocephalic Comment:: ETT and NG in place; pupils reactive and equal Neck: Present normal inspection Respiratory: Present patient mechanically ventilated; Absent rhonchi, wheezes or crackles Cardiac: Present Reg Rate and Rhythm GI: Present soft and normal bowel sounds; Absent distention or tenderness Extremities: Present normal inspection and full ROM Skin: Present intact; Absent erythema Neuro: Present alert, awake and moves all extremities Comment:: Responding with head nods. Assessment and Plan *Assessment and plan (1) Acute hypoxemic respiratory failure: Status: Acute Category: Medical Code(s): J96.01 - Acute respiratory failure with hypoxia (2) Suicidal intent: Status: Acute Category: Medical Code(s): R45.851 - Suicidal ideations (3) Intentional drug overdose: Status: Acute Qualifiers: Encounter type: initial encounter Qualified Code(s): T50.902A - Poisoning by unspecified drugs, medicaments and biological substances, intent ional self-harm, initial encounter Category: Medical Code(s): T50.902A - Poisoning by unspecified drugs, medicaments and biological substances, intentional self-harm, initial encounter (4) Bipolar disorder: Status: Acute Qualifiers: Active/Remission status: currently active Current bipolar episode type: depressed Current episode severity: severe Psychotic features: unspecified Qualified Code(s): F31.4 - Bipolar disorder, current episode depressed, severe, without psychotic features Category: Medical Code(s): F31.9 - Bipolar disorder, unspecified (5) Hx of diabetes mellitus: Status: Acute Category: Medical Code(s): Z86.39 - Personal history of other endocrine, nutritional and metabolic disease (6) HTN (hypertension): Status: Acute Qualifiers: Hypertension type: unspecified Qualified Code(s): I10 - Essential (primary) hypertension Category: Medical Code(s): I10 - Essential (primary) hypertension Plan 43-year-old male with PMHx of bipolar disorder, diabetes, hypertension, chronic pain, and prior suicide attempt presenting to the emergency department after intentional overdose as a SA. patient initially reported the intention of take his life. he used Gabapentin, Morphine and Lisinopril-HCTZ Arrived via EMS after a relative found him and make him to swallow baking soda to provoke his vomit. On arrival patient was vomiting, on AMS, lethargic. Entubated to secure air way, after many unsuccessfully attempts of narcan IV. labs are grossly unremarkable. Urine toxicity also obtained, revealed positive also for marijuana, opiates, benzos, and amphetamine. Poison control center was called. Recommendations in place. Discussed with ED provider for admission. Pulmonology consulted to assist with vent management. Passed SBT this morning. Following commands. Meeting extubation criteria. Continues to require ICU level care. Plan as follow: -Acute hypoxemic respiratory failure status post mechanical ventilated, secondary to a suicide attempt by intentional drug overdose: Pulmonology consulted, appreciate their assistance. On minimal vent settings for the past 24 hours. Given improvement in mentation, passing SBT plan to extubate today. No need for antibiotics at this point of time Hemodynamically stable. Bradycardia improving. MAP Greater than 65. Kidney function normal with BUN/Cr, 9/0.9 respectively -Suicide attempt in the setting of prior history, bipolar, and major depression: Psych consult, social work consulted and assisting with eval for inpatient psych. Will begin process once patient medically stable and off ventilator. Continue normal saline for goal urine output 100 to 200 cc an hour. Potassium low at 3.2, will replace per tube 40 mEq twice daily. Magnesium 1.8. Replace with 2 g IV x 1. Repeat CBC, CMP, magnesium ordered for the morning. If remains stable off vent for 24 hours, will perform intake eval for inpatient placement given suicide attempt and overdose. -History of diabetes: Accu-Cheks every 6h Monitor for hypo or hyperglycemia Sliding scale insulin History of hypertension: Hold hypertensive medication. Lovenox for DVT prophylaxis. Protonix for GI protection IV daily Full code ICU/Critical care attestation This patient is critically ill with 30 minutes devoted solely to this patient managing life/organ supporting interventions that required physician assessment. This includes time spent making adjustments in ventilator settings, IV fluid administration, titration of pressors, adjustments of medications, discussion of patient with consultants and other care providers as well as updating patient and/or family (if patient by virtue of his/her condition is unable to participate in decision making). This does not include time spent performing separately billed procedures. Time is not concurrent with that of other providers.
[2023-06-14 07:57] LABS: ABG Base Excess -0.3 mmol/L (-2.4-2.3); ABG HCO3 23.1 mmhg (22.0-26.0); ABG Oxygen Saturation 97 % (90-100); ABG PCO2 31.3 mmhg (35.0-45.0); ABG PH 7.49 mmol/L (7.35-7.45); ABG PO2 85.2 mmhg (80-100); ABG TCO2 24.1 mmhg (23-27)
[2023-06-14 07:58] LABS: Oxygen 21% %; Tidal Volume 420
[2023-06-14 07:59] LABS: Allen's Test Acceptable; PEEP 5; Source Left Radial; Vent Rate 18
--- NOTE | 2023-06-14 08:11 | PC.NURSE ---
spoke with MD Saxena about 1 to 1 observation, stated as long as intubated and calm no need for 1:1 but if/when extubated this shift pt will need 1:1 observation; notified extension service specialist in charge that pt needs inpatient psych eval and possible transfer to [facility] when extubated, charge notified House as well
[2023-06-14] MEDS: MORPHINE 2MG/ML SYRINGE 2 MG IV ×2 (08:39→16:45)
[2023-06-14] MEDS: 0.9 % SODIUM CHLORIDE 1000ML 1,000 ML 125 ML IV ×2 (08:39→16:45)
[2023-06-14] MEDS: POTASSIUM CHLORIDE 20MEQ/15ML UDC 40 MEQ NG-TUBE (08:39)
[2023-06-14] MEDS: ENOXAPARIN 40MG/0.4ML SYRINGE 40 MG SQ (08:39)
[2023-06-14] MEDS: MAGNESIUM SULFATE IN WATER 2 GM/50 ML PIGGYBACK IV (08:39)
--- NOTE | 2023-06-14 09:35 | PC.NURSE ---
'kirill Robins stated okay to extubate pt, pt extubated to 2LNC per RT Lory, pt's oxygen saturation 98% on 2LNC
[2023-06-14 11:41] LABS: POC Glucose,Bedside 96 (70-110)
--- NOTE | 2023-06-14 12:34 | PC.NURSE ---
REMOVED PT'S BALTAZAR CATHETER, GAVE PT URINAL AND INSTRUCTED HIM TO USE THAT FROM NOW ON AND ASK FOR HELP IF HAS ANY TROUBLE USING URINAL
--- NOTE | 2023-06-14 12:38 | PC.NURSE ---
PLACED PT ON ROOM AIR, OXYGEN SATURATION 96% ON ROOM AIR
--- NOTE | 2023-06-14 15:18 | PC.NURSE ---
PT PASSED BEDSIDE SWALLOW, NGT REMOVED, DIABETIC DIET ORDERED TO START AT DINNER
[2023-06-14 16:50] LABS: POC Glucose,Bedside 108 (70-110)
[2023-06-14] MEDS: POTASSIUM CHLORIDE 20MEQ TAB 40 MEQ PO (21:05)
[2023-06-14] MEDS: SODIUM CHLORIDE 0.9% 10ML VIAL 10 ML IV (21:05)
[2023-06-14] MEDS: PANTOPRAZOLE 40MG VIAL 40 MG IV (21:05)
[2023-06-14] MEDS: ACETAMINOPHEN 325MG TAB 650 MG PO (21:06)
[2023-06-15] VITALS: BP 133/79; PULSE 65; PULSE 70; RESP 17; TEMP 36.9; O2SAT 97
[2023-06-15] MEDS: 0.9 % SODIUM CHLORIDE 1000ML 1,000 ML 125 ML IV ×2 (00:45→08:54)
[2023-06-15 04:00] VITALS: BP 124/86; PULSE 60; PULSE 62; RESP 18; TEMP 37.1; O2SAT 99; BMI 31.6
[2023-06-15 06:28] LABS: POC Glucose,Bedside 99 (70-110)
[2023-06-15 06:28] LABS: POC Glucose,Bedside 144 (70-110)
[2023-06-15 07:35] VITALS: BP 137/86; PULSE 62; RESP 16; TEMP 37.1; O2SAT 97
[2023-06-15 07:38] LABS: Alanine Aminotransferase 15 U/L (12-78); Albumin Level 3.5 g/dl (3.5-5.0); Albumin/Globulin Ratio 1.3 (1.1-1.8); Alkaline Phosphatase 59 U/L (38-126); Anion Gap 10.8 mEq/L (5-15); Aspartate Amino Transferase 22 U/L (17-59); Bilirubin,Total 0.5 mg/dl (0.2-1.3); Blood Urea Nitrogen 12 mg/dl (9-20); Calcium 8.8 mg/dl (8.4-10.2); Carbon Dioxide 27 mmol/L (22.0-30.0); Chloride 104 mmol/L (98-107); Creatinine Clearance Estimated 175 mL/min (50-200); Estimated Glomerular Filt Rate 105 ml/min (>60); GFR (African American) 126 ML/MIN (>60); Globulin 2.8 g/dL (1.3-3.2); Glucose 101 mg/dl (74-100); Potassium 3.8 mmoL/L (3.5-5.1); Sodium 138 mmol/L (136-145); Total Protein,Serum 6.3 g/dl (6.3-8.2)
[2023-06-15 07:48] LABS: Basophils % 0.5 % (0.1-2.0); Eosinophils # 0.1 K/mm3 (0.0-0.4); Eosinophils % 1.5 % (0.1-12.0); Hematocrit 42.2 % (42.0-52.0); Hemoglobin 14.1 g/dL (14.1-18.0); Lymphocytes # 2.2 K/mm3 (0.7-4.5); Mean Corpuscular HGB Conc 33.5 g/dL (31.8-35.4); Mean Corpuscular Hemoglobin 30.2 pg (27.0-31.2); Mean Corpuscular Volume 90.2 fl (80-94); Mean Platelet Volume 8.8 fl (7.4-10.4); Monocytes # 0.7 K/mm3 (0.1-1.0); Monocytes % 8.3 % (1.7-9.3); Neutrophils # 5.3 K/mm3 (1.8-7.8); Neutrophils % 63.8 % (37.0-80.0); Platelet Count 243 K/mm3 (142-424); Red Blood Count 4.68 M/mm3 (4.60-6.20); Red Cell Distribution Width 14.7 % (11.5-17.5); White Blood Count 8.3 K/mm3 (4.8-10.8)
--- NOTE | 2023-06-15 07:58 | P.DS_ITS ---
General Admission date:: 06/12/23 Discharge date: 06/15/23 HPI HPI HPI: This is a 43-year-old male with PMHx of bipolar disorder, diabetes, hypertension, chronic pain, and prior suicide attempt [facility] after an intentional overdose. History is limitted due to patient conditions. Per ED documentation patient reports that sometime between 11 AM and 2 PM today, he took 90 300mg tablets of gabapentin, 18 30mg tablets of morphine ER, 50 20mg/12.5mg lisinpril/hctz tablets in an attempt to kill himself. A woman that he is currently staying with who describes her self as an acquaintance arrived home and found him after this overdose, and she forced him to drink baking soda. After this, he began profusely vomiting. He arrives actively vomiting at this time. He received narcan from his friend olinda SEGURA. Admitted for stabilization treatment and management. Hospital Course Hospital Course Hospital Course: 43-year-old male with PMHx of bipolar disorder, diabetes, hypertension, chronic pain, and prior suicide attempt presenting to the emergency department after intentional overdose as a SA. patient initially reported the intention of take his life. he used Gabapentin, Morphine and Lisinopril-HCTZ Arrived via EMS after a relative found him and make him to swallow baking soda to provoke his vomit. On arrival patient was vomiting, on AMS, lethargic. Intubated to secure air way, after many unsuccessfully attempts of narcan IV. labs are grossly unremarkable. Urine toxicity also obtained, revealed positive also for marijuana, opiates, benzos, and amphetamine. Poison control center was called. Recommendations in place. Discussed with ED provider for admission. Pulmonology assisted with care. As medications wore off, patient met criteria for extubation. Has been extubated for 24 hours and is hemodynamically stable and at baseline level of function. Medically stable for discharge from the inpatient setting for psychiatric care. Problems addressed as follows: -Acute hypoxemic respiratory failure status post mechanical ventilated, s econdary to a suicide attempt by intentional drug overdose: Pulmonology consulted, appreciate their assistance. Patient necessitated minimal vent settings during hospitalization. Was intubated for approximately 36 hours prior to meeting extubation criteria. Has remained hemodynamically stable and on room air for over 24 hours and stable for discharge to higher level of care with psychiatric therapy. No antibiotics necessary. Kidney function and electrolytes remained stable. Tolerating p.o. intake. -Suicide attempt in the setting of prior history, bipolar, and major depression: Psych consult, social work consulted and assisting with eval for inpatient psych. When patient was extubated for 24 hours, intake eval performed with [facility]. Patient accepted for transfer for inpatient therapy given suicide attempt. Patient stable to discharge -History of diabetes: Accu-Cheks every 6h. No insulin requirements during admission. Blood sugar remained stable. History of hypertension: Held hypertensive medication during intubation. Resume lisinopril daily. Exam Data for Last 24 hours Vital signs and Labs for Last 24 Hours: Temp Pulse Resp BP Pulse Ox O2 Del Method O2 Flow Rate 98.7 F 62 16 137/86 97 Room Air 2 06/15/23 07:35 06/15/23 07:35 06/15/23 07:35 06/15/23 07:35 06/15/23 07:35 06/15/23 07:35 06/15/23 07:00 FiO2 21 06/14/23 09:32 Laboratory Results - last 24 hr 06/14/23 07:28: Specimen Source Left radial, O2 % 21%, ABG pH 7.49 H, ABG pCO2 31.3 L, ABG pO2 85.2, ABG HCO3 23.1, ABG Total CO2 24.1, ABG O2 Saturation 97, ABG Base Excess -0.3, Shay Test Acceptable, Vent Rate 18, Tidal Volume 420, PEEP 5 06/14/23 11:33: POC Glucose 96 06/14/23 16:42: POC Glucose 108 06/14/23 20:25: POC Glucose 144 H 06/15/23 06:19: POC Glucose 99 06/15/23 06:32: WBC 8.3, RBC 4.68, Hgb 14.1, Hct 42.2, MCV 90.2, MCH 30.2, MCHC 33.5, RDW 14.7, Plt Count 243, MPV 8.8, Neut % (Auto) 63.8, Lymph % (Auto) 26.0, Henderson % (Auto) 8.3, Eos % (Auto) 1.5, Baso % (Auto) 0.5, Neut # (Auto) 5.3, Lymph # (Auto) 2.2, Henderson # (Auto) 0.7, Eos # (Auto) 0.1, Baso # (Auto) 0.0, Sodium 138, Potassium 3.8, Chloride 104, Carbon Dioxide 27, Anion Gap 10.8, BUN 12 D, Creatinine 0.80, Estimated Creat Clear 175, Estimated GFR 105, Est GFR ( Amer) 126, Glucose 101 H, Calcium 8.8, Magnesium 2.0 D, Total Bilirubin 0.5, AST 22, ALT 15, Alkaline Phosphatase 59, Total Protein 6.3, Albumin 3.5, Globulin 2.8, Albumin/Globulin Ratio 1.3 I & O for Last 24 hours: Intake & Output 06/12/23 06/13/23 06/14/23 06/15/23 23:59 23:59 23:59 23:59 Intake Total 33.164 / 33.164 3963.841 / 3963.841 1916 / 1916 540 / 540 Output Total 1595 / 1615 1710 / 1710 3500 / 3900 1100 / 1100 Balance -1561.836 / -9105.890 2133.841 / 2253.841 -1584 / -1984 -560 / -560 Weight 108.862 kg 71.16 kg 107.184 kg 106 kg Microbiology Reports for the Last 24 Hours: Microbiology 06/12/23 19:07 Sputum - Endotracheal Tube Aspirate Gram Stain - Final Constitutional Constitutional: no acute distress and obese *Routine HEENT Exam Head: Present normocephalic Eye: Present EOMI and PERRL ENT: Present mucous membranes moist Comments: Edentulous *Routine Neck Exam Neck: Present supple; Absent lymphadenopathy *Routine Respiratory Exam Respiratory: Present CTA bilaterally; Absent rhonchi, wheezes or crackles *Routine Cardiovascular Exam Cardiovascular: Present RRR *Routine Abdominal Exam Abdominal: Present soft and normoactive bowel sounds; Absent tenderness *Routine Rectal Exam Patient deferred: visual exam *Routine Exam Patient deferred: penile exam *Routine Extremities Exam Extremities: Absent cyanosis, clubbing or edema *Routine Skin Exam Skin: Present warm; Absent rash *Routine Neurological Exam Neurological: Present alert, oriented X3 and moving all extremities; Absent altered mental status Routine Psychiatric Exam Psychiatric: Present normal affect, normal thought process, suicidal ideation and cooperative; Absent homicidal ideation Results Data Completed and Pending Labs on day of discharge: Labs from last 24 hours 06/15/23 06/15/23 06/14/23 06:32 06:19 20:25 WBC 8.3 RBC 4.68 Hgb 14.1 Hct 42.2 MCV 90.2 MCH 30.2 MCHC 33.5 RDW 14.7 Plt Count 243 MPV 8.8 Neut % (Auto) 63.8 Lymph % (Auto) 26.0 Henderson % (Auto) 8.3 Eos % (Auto) 1.5 Baso % (Auto) 0.5 Neut # (Auto) 5.3 Lymph # (Auto) 2.2 Henderson # (Auto) 0.7 Eos # (Auto) 0.1 Baso # (Auto) 0.0 Specimen Source O2 % ABG pH ABG pCO2 ABG pO2 ABG HCO3 ABG Total CO2 ABG O2 Saturation ABG Base Excess Shay Test Vent Rate Tidal Volume PEEP Sodium 138 Potassium 3.8 Chloride 104 Carbon Dioxide 27 Anion Gap 10.8 BUN 12 D Creatinine 0.80 Estimated Creat Clear 175 Estimated GFR 105 Est GFR ( Amer) 126 Glucose 101 H POC Glucose 99 144 H Calcium 8.8 Magnesium 2.0 D Total Bilirubin 0.5 AST 22 ALT 15 Alkaline Phosphatase 59 Total Protein 6.3 Albumin 3.5 Globulin 2.8 Albumin/Globulin Ratio 1.3 06/14/23 06/14/23 06/14/23 16:42 11:33 07:28 WBC RBC Hgb Hct MCV MCH MCHC RDW Plt Count MPV Neut % (Auto) Lymph % (Auto) Henderson % (Auto) Eos % (Auto) Baso % (Auto) Neut # (Auto) Lymph # (Auto) Henderson # (Auto) Eos # (Auto) Baso # (Auto) Specimen Source Left radial O2 % 21% ABG pH 7.49 H ABG pCO2 31.3 L ABG pO2 85.2 ABG HCO3 23.1 ABG Total CO2 24.1 ABG O2 Saturation 97 ABG Base Excess -0.3 Shay Test Acceptable Vent Rate 18 Tidal Volume 420 PEEP 5 Sodium Potassium Chloride Carbon Dioxide Anion Gap BUN Creatinine Estimated Creat Clear Estimated GFR Est GFR ( Amer) Glucose POC Glucose 108 96 Calcium Magnesium Total Bilirubin AST ALT Alkaline Phosphatase Total Protein Albumin Globulin Albumin/Globulin Ratio DS: Diagnosis Discharge Diagnosis (1) Acute hypoxemic respiratory failure: Status: Acute Code(s): J96.01 - Acute respiratory failure with hypoxia (2) Suicidal intent: Status: Acute Code(s): R45.851 - Suicidal ideations (3) Intentional drug overdose: Status: Acute Code(s): T50.902A - Poisoning by unspecified drugs, medicaments and biological substances, intentional self-harm, initial encounter Qualifiers: Encounter type: initial encounter Qualified Code(s): T50.902A - Poisoning by unspecified drugs, medicaments and biological substances, intentional self-harm, initial encounter (4) Bipolar disorder: Status: Acute Code(s): F31.9 - Bipolar disorder, unspecified Qualifiers: Active/Remission status: currently active Current bipolar episode type: depressed Current episode severity: severe Psychotic features: unspecified Qualified Code(s): F31.4 - Bipolar disorder, current episode depressed, severe, without psychotic features (5) Hx of diabetes mellitus: Status: Acute Code(s): Z86.39 - Personal history of other endocrine, nutritional and metabolic disease (6) HTN (hypertension): Status: Acute Code(s): I10 - Essential (primary) hypertension Qualifiers: Hypertension type: unspecified Qualified Code(s): I10 - Essential (primary) hypertension Meds Home Medications and Allergies Home Medications Medication Instructions Recorded Confirmed Type lisinopril 10 mg tablet 10 mg PO DAILY #30 tabs 06/15/23 Rx New Prescriptions to Start Prescriptions: saiinoEnoc Amato Allergies Allergy/AdvReac Type Severity Reaction Status Date / Time No Known Allergies Allergy Verified 06/12/23 17:54 Discharge Plan Disposition Patient Disposition: Xfer Psychiatric Hosp Condition: Good Discharge Order Discharge Orders: Discharge Order (Routine); Ordered 06/15/23 Ordered By: Enoc Saxena Follow up Plan Prescriptions/Medication Reconciliation: New lisinopril 10 mg tablet 10 mg PO DAILY Qty: 30 0RF Discontinued lisinopril-hydrochlorothiazide 20-12.5 mg tablet 1 tab PO BID Patient Comments: TAKE 1 TABLET BY MOUTH TWICE DAILY gabapentin 300 mg capsule 300 mg PO TID Patient Comments: TAKE 1 CAPSULE BY MOUTH THREE TIMES DAILY levocetirizine 5 mg tablet 5 mg PO HS Patient Comments: TAKE 1 TABLET BY MOUTH ONCE DAILY IN THE EVENING Problem Reconciliation Problems Reviewed?: Yes Patient Discharge Instructions ACTIVITY: Continue current activity DIET: continue same diet Patient Instructions: Ventilator-Associated Pneumonia, DI for Drug Overdose in Adults, Catheter-Associated Urinary Tract Infection, Suicide Resources/Education Providers Primary Care Provider: Provider,Referral Admit Provider: Enoc Saxena Attending Provider: Enoc Saxena
[2023-06-15 08:00] VITALS: PULSE 62; PULSE 70
--- NOTE | 2023-06-15 08:25 | PC.NURSE ---
REGINE STODDARD FROM [facility], CALL TRANSFERRED TO MED SURG FLOOR AT THIS TIME
[2023-06-15] MEDS: ACETAMINOPHEN 325MG TAB 650 MG PO (09:11)
[2023-06-15] MEDS: ENOXAPARIN 40MG/0.4ML SYRINGE 40 MG SQ (09:11)
[2023-06-15] MEDS: POTASSIUM CHLORIDE 20MEQ TAB 40 MEQ PO (09:13)
--- NOTE | 2023-06-15 09:33 | PC.NURSE ---
Spoke with Catalina at [facility]. Updated her on Pt's contacts and new information. Pt stated he doesn't speak with parents. New contact added. Rony Brock [phone]. Suicide assessment completed. Pt is A&O x4. He no longer wishes to kill himself. Previously thought of suicide when he was a teenager once but never attempted. Pt indicated stressors of girlfriend on heroin and his estranged relationship with his parents. Pt states he has a 15 yr old son and an 11 yr old daughter that he does have a relationship with.
[2023-06-15 11:25] VITALS: BP 159/100; PULSE 77; RESP 18; TEMP 36.9; O2SAT 97
--- NOTE | 2023-06-15 11:35 | PC.NURSE ---
Spoke with Catalina from [facility]. Police have been given documents. Awaiting Bookkeeping Service Sales Agent to sign paperwork, then police will come over to pickling tank operator Pt to go to [facility].
[2023-06-15 11:40] LABS: POC Glucose,Bedside 128 (70-110)
[2023-06-15] MEDS: KETOROLAC 30MG/ML VIAL 30 MG IM (12:05)
--- NOTE | 2023-06-15 12:05 | PC.NURSE ---
Report called to [facility].
--- NOTE | 2023-06-15 12:18 | PC.NURSE ---
Poison Control updated on pt status.
--- NOTE | 2023-06-15 13:06 | PC.NURSE ---
Spoke with [place] [employer] department. They received paperwork from Catalina [employer] [facility]. They are awaiting signed paperwork from Janitorial Account Manager to transport to [facility]. They will not be able to transport pt out of [facility] until after 1400.
--- NOTE | 2023-06-15 14:27 | PC.NURSE ---
Pt left with police escort to go to [facility].
== END 2023-06-15 14:21 | DRG 917 ==
LOC: ER 19:33 → 2ND 22:44
PROVIDERS: Internal Medicine Pulmonary Disease; Nurse Practitioner Family; Admitting Provider Internal Medicine Adolescent Medicine; Emergency Provider Emergency Medicine; Visit Provider Internal Medicine Adolescent Medicine
DX: T42.6X2A Poisoning by other antiepileptic and sedative-hypnotic drugs, intentional self-harm, initial encounter (principal); J96.00 Acute respiratory failure, unspecified whether with hypoxia or hypercapnia; T46.4X2A Poisoning by angiotensin-converting-enzyme inhibitors, intentional self-harm, initial encounter; T40.2X2A Poisoning by other opioids, intentional self-harm, initial encounter; F31.9 Bipolar disorder, unspecified; E11.9 Type 2 diabetes mellitus without complications; I10 Essential (primary) hypertension; F17.200 Nicotine dependence, unspecified, uncomplicated
CPT/HCPCS: 31500; 94002; 36415; 51702; 71045; 80053; 80307; 80329; 81001; 82550; 82803; 82962; 83735; 84100; 84484; 85025; 87070; 87205; 93005; 94003; 99291; J0330; J2310; J2405; J2704; J3475